=== PATIENT | female | born 1935 | race Caucasian/White ===

== ENCOUNTER 2016-09-30 22:17 | Inpatient (IN) | payer MEDICARE, MEDICAID ==
[~2016-09-30] VITALS: Ht 121.9 cm; Wt 105.2 kg
[~2016-09-30 22:17] MED LIST: /COSOOPD10 OU; /GLIP10TAB PO; /RANI15TA PO; ALDA25TA2 PO; ALLO100T PO; ALLO300T2 PO; ALPH0.1S OU; ATOR1TAB21 PO; BACITAB3 PO; BISA10SU PR; CALC1CAP31 PO; CINA30TA PO; CRAN500C2 PO; DORZ2OPD OU; GLIP10TA6 PO; HEPA50VL SC; HEPA50VL SQ; HUMA100I SC; IPRASOL4 NEB; LASI40TA PO; LEVO250T PO; LEVO25TA5 PO; MECL-68 PO; MULTTAB24 PO; NYST100024 TOP; SALI0.9I2 IV; SPIR25TA2 PO; TEFL600I IV; TRAD5TAB PO; TRAV0.00 OU; TRAV04OPD OU; TYLE325T5 PO; VITMTA PO; [UNRECOGNIZED DRUG - CODE] PO; [UNRECOGNIZED DRUG - OTHER] NEB; [UNRECOGNIZED DRUG - OTHER] OU
[2016-09-30] MEDS ORDERED: IPRATROPIUM 0.5MG/ALBUTEROL 2.5MG INH SOL UD 3ML (DUONEB)(J7620) As Ordered ONE (23:24)
[2016-09-30 23:38] LABS: ABG BASE EXCESS -2.5 (-2.0-2.0); ABG DEVICE NASAL CANN; ABG HCO3 22.9 MEQ/L (22.0-26.0); ABG PARTIAL PRESSURE CO2 41.9 mmHg (35.0-45.0); ABG PARTIAL PRESSURE O2 78.2 mmHg (75.0-100.0); ABG STANDARD HCO3 22.4 MEQ/L (22.0-26.0); ABG TOTAL CO2 24.2 MEQ/L (23.0-31.0); ABG pH (ARTERIAL) 7.356 UNITS (7.350-7.450)
[2016-09-30] MEDS ORDERED: NYST100024 TOP (23:48)
[2016-09-30] MEDS ORDERED: ASPI1TAB PO (23:48)
[2016-09-30] MEDS ORDERED: MECL-68 PO (23:48)
[2016-09-30] MEDS ORDERED: SYNT50TA PO (23:48)
[2016-09-30] MEDS ORDERED: GLIP10TA6 PO (23:48)
[2016-09-30] MEDS ORDERED: DEXI30CA PO (23:48)
[2016-09-30] MEDS ORDERED: PLAV75TA PO (23:51)
[2016-09-30] MEDS ORDERED: TRAV04OPD OU (23:51)
[2016-09-30] MEDS ORDERED: CINA30TA PO (23:51)
[2016-09-30] MEDS ORDERED: FURO40TA2 PO (23:51)
[2016-09-30] MEDS ORDERED: MIDO5TA PO (23:51)
[2016-09-30] MEDS ORDERED: HYDR25T PO (23:53)
[2016-09-30] MEDS ORDERED: CIPR250T3 PO (23:53)
[2016-09-30] MEDS ORDERED: CALC1CAP31 PO (23:53)
[2016-10-01] VITALS (40 sets, daily range): BP systolic 68–121; BP diastolic 43–68
[2016-10-01] MEDS ORDERED: IPRATROPIUM 0.5MG/ALBUTEROL 2.5MG INH SOL UD 3ML (DUONEB)(J7620) As Ordered ONE (00:14)
[2016-10-01] MEDS ORDERED: NOREPINEPHRINE 4 MG/4 ML AMP As Ordered ONE (00:39)
[2016-10-01 00:59] LABS: BASO # 0.2 K/mm3 (0.0-0.2); BASO % 1.7 % (0.0-1.0); EOS # 0.3 K/mm3 (0.0-0.50); EOS % 2.6 % (0.0-3.0); LARGE UNSTAINED CELL # 0.1 K/mm3 (0.0-0.4); LARGE UNSTAINED CELL % 1.2 % (0.0-4.0); LYMPH # 1.9 K/mm3 (1.5-4.5); LYMPH % 16.9 % (24.0-44.0); MEAN CORPUSCULAR HEMOGLOBIN 27.7 pg (27.0-33.0); MEAN CORPUSCULAR HGB CONC 30.5 g/dl (32.0-36.5); MEAN CORPUSCULAR VOLUME 90.7 fl (80.0-96.0); MONO # 0.5 K/mm3 (0.0-0.8); MONO % 4.6 % (0.0-5.0); NEUTROPHILS # 7.6 K/mm3 (1.8-7.7); NEUTROPHILS % 73.1 % (36.0-66.0); PLATELET COUNT, AUTOMATED 206 k/mm3 (150-450); RED CELL DISTRIBUTION WIDTH 16.4 % (11.5-14.5); WHITE BLOOD COUNT 10.4 K/mm3 (4.0-10.0)
[2016-10-01 01:22] LABS: CALCIUM LEVEL 8.3 MG/DL (8.8-10.2); CREATININE FOR GFR 2.56 MG/DL (0.55-1.02); GLOMERULAR FILTRATION RATE 19.2 (>32); POTASSIUM SERUM 5.1 MEQ/L (3.5-5.1)
[2016-10-01] MEDS ORDERED: ACETAMINOPHEN TAB 650MG DOSE (2X325MG) As Ordered ONE (03:24)
--- NOTE | 2016-10-01 03:30 | REPUSA ---
CLINICAL HISTORY: Cough. TECHNIQUE: Multiple axial CT images were obtained through chest without IV contrast material. MPR cor onal and sagittal sequences were obtained. COMMENTS: There is no evidence of pleural or parenchymal mass. There are small bilateral pleural effusions. The re is no evidence of hilar or mediastinal lymphadenopathy. The heart is moderately enlarged great ves sels are engorged. Interstitial pulmonary edema. Alveolar pulmonary edema. The visualized portions of the liver are of uniform attenuation without mass or defect. There is no i ntra or extrahepatic biliary ductal dilatation. The spleen is unremarkable. The visualized pancreas i s of normal contour and attenuation characteristics. There is no evidence of adrenal mass. The visual ized portions of the kidneys present no abnormalities. The bony structures are free of lytic or blastic lesions. Multilevel degenerative changes are seen in volving the thoracic spine. Scattered calcifications are seen involving the aorta and visualized roxann r branches compatible with atherosclerosis. Mild increase in dorsal kyphosis. Prior cholecystectomy. IMPRESSION: Congestive heart failure. Small pleural effusions. Interstitial pulmonary edema. Alveolar pulmonary edema. Thank you for your kind referral of this patient.
[2016-10-01] MEDS ORDERED: NOREPINEPHRINE BITARTRATE 8 MG in D5W 500 ML IV SCH (05:00)
[2016-10-01] MEDS ORDERED: GLUCAGON FOR INJ 1 MG VIAL (J1610) SC PRN (05:15)
[2016-10-01] MEDS ORDERED: GLUCOSE 4 GM CHEW TABLET PO PRN (05:15)
[2016-10-01] MEDS ORDERED: DEXTROSE 50% 50 ML SYRINGE IV PRN (05:15)
--- NOTE | 2016-10-01 06:56 | EDDOCDS ---
Nurse's Notes [facility] Name: Shyanne Adams Age: 81 yrs Sex: Female : 1935 Arrival Date: 09/30/2016 Time: 22:17 Bed 2 Private MD: Serjio Ivan MD Diagnosis: Acute combined systolic (congestive) and diastolic (congestive) heart failure;Hypoxemia;Hypotension Presentation: 09/30 22:21 Presenting complaint: EMS states: patient lives at home, daughter arrived and patient nn1 was barely conscious. Patient has hx of COPD, room air saturation 70%. Patient given nitro en route, nitro improved symptoms. Patient received 10mg of lasix en route, BP low. Transition of care: patient was not received from another setting of care. 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 Care prior to nn1 arrival: Medications administered prior to arrival: 1 nitro, 10mg lasix. 22:41 Suicide/Homicide risk assessment- the patient denies having any suicidal and/or nn1 homicidal ideations and does not present with any other emotional, behavioral or mental health complaints. 23:55 Adult Sepsis Screening: The patient does not have new or worsening altered mentation. nn1 Patient's respiratory rate is less than 22. Systolic blood pressure is greater than 100. Patient has a qSOFA score of 0- Negative Sepsis Screen. Triage Assessment: 22:44 General: Appears in no apparent distress, Behavior is fussy. Pain: Denies pain. The nn1 patient is triaged at the bedside. See Assessment in Nurses Notes section of ED record. Neurological: Level of Consciousness is awake, alert, obeys commands, Oriented to person, place, time, Moves all extremities. Cardiovascular: Capillary refill < 3 seconds. Cardiovascular: Edema is 4+ to left midcalf, left ankle, left foot, left toes, right midcalf, right ankle, right foot and right toes Chest pain is denied. Respiratory: Onset: The symptoms/episode began/occurred today, Airway is patent Respiratory effort is even, Respiratory pattern is regular, Breath sounds are coarse expiratory. GI: Abdomen is obese. Derm: Skin breakdown noted throughout body. Cellulitis noted in bilateral lower extremities, scabs throughout. Skin is dry, flaking. Rash noted on upper back. Injury Description: No known injury. Historical: - Allergies: NSAIDS (Stage IV kidney disease); ROSIGLITAZONE DERIVATIVES (Rash); - Home Meds: 1. meclizine 25 mg Oral cap daily 2. allopurinol 100 mg Oral tab 2 tabs once daily 3. aspirin 81 mg Oral tab 1 tab once daily 4. atorvastatin 20 mg oral tab 1 tab once daily 5. deyilant 30 mg daily 6. dorzolamide 2 % ophthalmic drop 7. glipizide 10 mg Oral tab 1 tab 2 times per day 8. Lasix 40 mg Oral tab 1 tab 2 times per day 9. levothyroxine 50 mcg Oral cap 1 cap once daily 10. midodrine 5 mg oral tab 11. Plavix 75 mg Oral tab 1 tab once daily 12. Sensipar 30 mg oral tab bid M and F 13. Travatan Z 0.004 % ophthalmic drop 1 drop nightly - PMHx: Anemia; CHF; Diabetes - NIDDM: controlled; Glaucoma; Gout; Heart Murmur; heart valve problem; Hypertension; Hypothyroidism; Stage IV kidney disease; Vertigo; - PSHx: Cholecystectomy; ; - Social history: Smoking status: Patient states was never smoker of tobacco. No barriers to communication noted, The patient speaks fluent Bahamian, Speaks appropriately for age. - Family history: No immediate family members are acutely ill. - : The pt / caregiver states he / she is on anticoagulants: Plavix. Home medication list is obtained from [facility] import data. - Exposure Risk Screening:: None identified. Screenin:48 Screening information is obtained from the patient. Fall risk: At risk due to gait nn1 disturbance. Assistance ADL's: Requires assistance with meal preparation, this assistance is provided by Home Health Aides, bathing, assistance is provided by Home Health Aides, dressing, assistance is provided by Home Health Aides, toileting, assistance is provided by Home Health Aides, ambulation, assistance is provided by Home Health Aides, housework, assistance is provided by Home Health Aides, medication administration, assistance is provided by Public Health nurses. Abuse/DV Screen: The patient / caregiver reports he/she is: not in a situation that causes fear, pain or injury. Nutritional screening: No deficits noted. Advance Directives: Currently, there is a health care proxy, Haydee Mckay, daughter . There is an active DNR order but there is no copy available at this time. home support is adequate. Assessment: 22:49 General: See triage assessment . Cardiovascular: Capillary refill < 3 seconds Heart nn1 tones S1 S2 present Rhythm is sinus tachycardia Chest pain is denied. 23:55 General: Patient is comfortable, reports headache at this time. Has family at bedside. nn1 . Respiratory: Airway is patent Respiratory effort is even, Respiratory pattern is regular. 10/01 00:24 General: Patient requested lights to be shut off so she can sleep. patient received nn1 breathing treatments. . Respiratory: Breath sounds are coarse expiratory. 00:49 General: Patients blood pressure dropped, patient reporting dizziness and that she does nn1 not feel right. Patient medicated per order, patient placed in Trendelenburg. Will continue to monitor patient . Neurological: Level of Consciousness is awake, alert. Respiratory: Airway is patent Respiratory effort is even, Respiratory pattern is regular. Derm: Skin is pink, warm & dry. 02:02 General: Appears in no apparent distress, to be sleeping. Behavior is quiet, Patient nn1 has calmed down, continuing to monitor blood pressure at this time. . Respiratory: Airway is patent Respiratory effort is even, Respiratory pattern is regular, symmetrical. Derm: Skin is pink, warm & dry. 03:00 General: Appears in no apparent distress, to be sleeping. Behavior is quiet. nn1 04:05 Reassessment: Patient appears in no apparent distress at this time. Respiratory: Airway nn1 is patent Respiratory effort is even, unlabored, Respiratory pattern is regular, symmetrical. 04:49 General: Appears in no apparent distress, comfortable, to be sleeping. Behavior is nn1 quiet. Respiratory: Airway is patent Respiratory effort is even, unlabored, Respiratory pattern is regular, symmetrical. Derm: Skin is pink, warm & dry. 05:30 General: Dr. Awad assessed patient, no central line placement at this time. Patient nn1 had bowel movement, patient changed, clean linens placed on bed. Patient now resting. Spoke with ED provider, levophed remaining at 6mcg/min at this time. . 05:47 General: Attempt to call report made, ICU refusing to take patient due to lack of nn1 central line, charge nurse notified. . 06:50 General: Appears in no apparent distress, to be sleeping. Behavior is quiet. nn1 Respiratory: Airway is patent Respiratory effort is even, unlabored, Respiratory pattern is regular, symmetrical. Derm: Skin is pink, warm & dry. Vital Signs: 09/30 22:42 BP 132 / 75; Pulse 99; Resp 20; Temp 97.5(TE); Pulse Ox 97% on 6 lpm NC; Weight 108.86 rn1 kg (R); Height 4 ft. 10 in. (147.32 cm); Pain 0/10; 22:50 BP 109 / 58 (auto/); nn1 22:50 Pulse 111 MON; Pulse Ox 100% ; nn1 23:00 BP 126 / 53 (auto/); nn1 23:00 Pulse 113 MON; Pulse Ox 100% ; nn1 23:15 BP 118 / 58 (auto/); nn1 23:15 Pulse 114 MON; Pulse Ox 99% ; nn1 23:30 BP 127 / 56 (auto/); nn1 23:30 Pulse 112 MON; Pulse Ox 99% ; nn1 23:45 BP 108 / 55 (auto/); nn1 23:45 Pulse 111 MON; nn1 10/01 00:00 BP 115 / 73 (auto/); nn1 00:00 Pulse 110 MON; Pulse Ox 99% ; nn1 00:15 BP 102 / 57 (auto/); nn1 00:15 Pulse 114 MON; Pulse Ox 95% ; nn1 00:30 BP 53 / 32 (auto/); nn1 00:30 Pulse 120 MON; Pulse Ox 95% ; nn1 00:32 BP 62 / 34 (auto/); nn1 00:32 Pulse 110 MON; Pulse Ox 97% ; nn1 00:43 BP 51 / 31 (auto/); nn1 00:43 Pulse 98 MON; Pulse Ox 96% ; nn1 00:45 BP 55 / 37 (auto/); nn1 00:45 Pulse 101 MON; Pulse Ox 97% ; nn1 00:51 Resp 18; Pulse Ox 2 lpm NC; nn1 00:51 Pulse 114 MON; Pulse Ox 95% ; nn1 00:51 Resp 18; nn1 00:52 BP 73 / 48 (auto/); nn1 00:58 Pulse 123 MON; Pulse Ox 96% ; nn1 00:59 Pulse 123 MON; Pulse Ox 95% ; nn1 00:59 BP 84 / 54 (auto/); nn1 01:00 BP 85 / 55 (auto/); nn1 01:00 BP 84 / 54; nn1 01:10 BP 99 / 54 (auto/); nn1 01:10 Pulse 127 MON; Pulse Ox 96% ; nn1 01:15 BP 91 / 54 (auto/); nn1 01:15 Pulse 128 MON; Pulse Ox 94% ; nn1 01:21 BP 87 / 50 (auto/); nn1 01:21 Pulse 127 MON; Pulse Ox 94% ; nn1 01:22 BP 87 / 50; nn1 01:30 BP 90 / 50 (auto/); nn1 01:30 Pulse 130 MON; Pulse Ox 95% ; nn1 01:45 BP 88 / 50 (auto/); nn1 01:45 Pulse 131 MON; Pulse Ox 96% ; nn1 02:00 BP 95 / 53 (auto/); nn1 02:00 Pulse 131 MON; Pulse Ox 96% ; nn1 02:15 BP 97 / 56 (auto/); nn1 02:29 Pulse 135 MON; Pulse Ox 96% ; nn1 02:30 BP 92 / 56 (auto/); nn1 02:30 Pulse 135 MON; Pulse Ox 96% ; nn1 02:45 BP 103 / 57 (auto/); nn1 02:45 Pulse 128 MON; Pulse Ox 97% ; nn1 02:58 Resp 18; Temp 97.3(TE); nn1 03:00 BP 83 / 53 (auto/); nn1 03:00 Pulse 130 MON; Pulse Ox 97% ; nn1 03:15 BP 95 / 55 (auto/); nn1 03:15 Pulse 131 MON; Pulse Ox 97% ; nn1 03:25 BP 103 / 56 (auto/); nn1 03:25 Pulse 123 MON; Pulse Ox 98% ; nn1 03:27 BP 103 / 56; Pulse 126; nn1 03:30 BP 103 / 59 (auto/); nn1 03:30 Pulse 124 MON; Pulse Ox 99% ; nn1 03:45 BP 84 / 52 (auto/); nn1 03:45 Pulse 127 MON; Pulse Ox 99% ; nn1 04:00 BP 89 / 50 (auto/); nn1 04:00 Pulse 127 MON; Pulse Ox 98% ; nn1 04:15 BP 100 / 58 (auto/); nn1 04:16 Pulse 124 MON; Pulse Ox 98% ; nn1 04:30 BP 102 / 56 (auto/); nn1 04:30 Pulse 120 MON; Pulse Ox 99% ; nn1 04:45 BP 94 / 51 (auto/); nn1 04:45 Pulse 115 MON; Pulse Ox 98% ; nn1 04:57 Pulse Ox 2 lpm NC; nn1 05:00 BP 98 / 53 (auto/); nn1 05:00 Pulse 116 MON; Pulse Ox 98% ; nn1 05:15 BP 104 / 56 (auto/); nn1 05:15 Pulse 114 MON; Pulse Ox 100% ; nn1 05:38 BP 92 / 53 (auto/); nn1 05:38 Pulse 124 MON; Pulse Ox 94% ; nn1 05:45 BP 120 / 60 (auto/); nn1 05:45 Pulse 118 MON; Pulse Ox 97% ; nn1 06:00 BP 106 / 55 (auto/); nn1 06:00 Pulse 109 MON; Pulse Ox 97% ; nn1 06:15 BP 98 / 57 (auto/); nn1 06:15 Pulse 108 MON; Pulse Ox 99% ; nn1 06:30 BP 95 / 52 (auto/); nn1 06:30 Pulse 107 MON; Pulse Ox 99% ; nn1 06:36 Resp 20; nn1 06:49 BP 107 / 57 RA Supine (auto/reg); Pulse 115 MON; Temp 97.1(TE); Pulse Ox 99% on 2 lpm cln NC; Pain 0/10; 09/30 22:42 Body Mass Index 50.16 (108.86 kg, 147.32 cm) rn1 Vitals: 06:49 Log In Time N/A - ambulance arrival. nn1 ED Course: 09/30 22:18 Patient visited by Asher Boles Alcohol And Drug Counselor. ml3 22:18 Serjio Ivan is Private Physician. ml3 22:18 Patient moved to Waiting ml3 22:19 Patient moved to 2 ml3 22:22 Triage Initiated nn1 22:29 Sd Clifford DO is Attending Physician. mm11 22:29 Patient visited by Sd Clifford DO. mm11 23:01 Patient visited by Sd Clifford DO. mm11 23:01 [facility] Payment Agreement was scanned into [employer] and attached to record. kf3 23:26 Patient visited by Robyn Weiner PCA. cln 23:26 EKG done. (by ED staff). Reviewed by Sd Clifford DO. cln 23:35 -Arterial Blood Gas Sent. jh6 23:56 Patient visited by Rod Waterman RN. nn1 10/01 00:23 Maintain field IV. Gauge & site: 20G RAC . IV is patent. O2 via nasal cannula \T\ 2L/min. nn1 00:37 Patient visited by Sd Clifford DO. mm11 00:50 Inserted saline lock: 18 gauge in left antecubital area and blood collected. The nn1 patient tolerated the procedure well. 01:09 Patient visited by Sd Clifford DO. mm11 01:19 BLOOD CULTURES Sent. nn1 01:41 Patient visited by Sd Clifford DO. mm11 02:20 Patient visited by Sd Clifford DO. mm11 02:53 EKG done. (by ED staff). Reviewed by Sd Clifford DO. cln 02:58 Patient visited by Rod Waterman RN. nn1 03:37 CT Chest Without Contrast Returned. EDMS 03:49 Patient visited by Robyn Weiner PCA. cln 04:49 Patient visited by Rod Waterman RN. nn1 05:28 Marquita Gaston is Hospitalizing Provider. mm11 06:41 Patient visited by Rod Waterman RN. nn1 06:49 The patient / caregiver is instructed regarding the plan of care and ED course. nn1 06:49 No procedures done that require assistance. nn1 06:50 Patient visited by Bety White. dem1 06:50 Patient visited by Robyn Weiner PCA. cln 06:50 Assisted with bedpan. dem1 Administered Medications: 09/30 23:35 Drug: Albuterol-Ipratropium 1 neb [ipratropium-albuterol 0.5 mg-3 mg(2.5 mg base)/3 mL 6 nebulization soln (1 neb)] Route: Nebulizer; 23:55 Drug: Albuterol-Ipratropium 1 neb [ipratropium-albuterol 0.5 mg-3 mg(2.5 mg base)/3 mL jh6 nebulization soln (1 neb)] Route: Nebulizer; 10/01 00:16 Drug: Albuterol-Ipratropium 1 neb [ipratropium-albuterol 0.5 mg-3 mg(2.5 mg base)/3 mL jh6 nebulization soln (1 neb)] Route: Nebulizer; 00:48 Drug: NS 0.9% 500 ml [sodium chloride 0.9 % intravenous solution] Route: IV; Rate: nn1 bolus; Site: right antecubital; 00:48 Drug: Norepinephrine (8mg/500mL D5W, 2mcg/min) 4 mcg/min [norepinephrine bitartrate 1 nn1 mg/mL intravenous solution] Route: IVPB; Rate: calculated rate; Site: left antecubital; 00:54 Follow up: Rate change 6 mcg/min nn1 01:00 Follow up: BP 84 / 54 nn1 01:00 Follow up: Rate change 8 mcg/min nn1 01:22 Follow up: BP 87 / 50 nn1 01:23 Follow up: Rate change 10 mcg/min nn1 02:58 Follow up: Rate change 8 mcg/min nn1 03:27 Follow up: BP 103 / 56; Pulse 126 bpm nn1 03:27 Follow up: Rate change 6 mcg/min nn1 03:27 Drug: Acetaminophen 650 mg [acetaminophen 325 mg tablet (2 tabs)] Route: PO; nn1 RT: 09/30 22:22 O2 via nasal cannula \T\ 6L/min. Respiratory: Airway is patent Respiratory effort is jh6 even, labored, Respiratory pattern is tachypnea Breath sounds are coarse in right upper lobe, left upper lobe, right middle lobe, left lower lobe and right lower lobe. 23:35 ABG's drawn from left radial artery pressure held for 5 minutes no bleeding noted jh6 pressure bandage applied specimen sent pt. tolerated well. 23:39 Initial Med Neb Given as ordered Patient was instructed and evaluated on procedure jh6 Patient tolerated procedure well without adverse effect. Respiratory: Airway is patent Respiratory effort is even, unlabored, Respiratory pattern is regular symmetrical, Breath sounds are coarse in right upper lobe, left upper lobe, right middle lobe, left lower lobe and right lower lobe. 23:45 Respiratory: Breath sounds are coarse in right upper lobe, left upper lobe, right jh6 middle lobe, left lower lobe and right lower lobe. 23:57 Subsequent Med Neb Given as ordered Patient was reinforced on procedure Patient chantel tolerated procedure well without adverse effect. Respiratory: Airway is patent Respiratory effort is even, unlabored, Respiratory pattern is regular symmetrical, Breath sounds with crackles in right upper lobe, left upper lobe, right middle lobe, left lower lobe and right lower lobe. 10/01 00:17 Subsequent Med Neb Given as ordered Patient was reinforced on procedure Patient chantel tolerated procedure well without adverse effect. Respiratory: Airway is patent Respiratory effort is even, unlabored, Respiratory pattern is regular symmetrical, Breath sounds are coarse in right upper lobe, left upper lobe, right middle lobe, left lower lobe and right lower lobe Breath sounds with crackles in right upper lobe, left upper lobe, right middle lobe, left lower lobe and right lower lobe. Order Results: Lab Order: -Arterial Blood Gas; SPEC'M 09/30/16 23:28 Test: ABG pH (ARTERIAL); Value: 7.356; Range: 7.350-7.450; Units: UNITS; Status: F Test: ABG PARTIAL PRESSURE CO2; Value: 41.9; Range: 35.0-45.0; Units: mmHg; Status: F Test: ABG PARTIAL PRESSURE O2; Value: 78.2; Range: 75.0-100.0; Units: mmHg; Status: F Test: ABG TOTAL CO2; Value: 24.2; Range: 23.0-31.0; Units: MEQ/L; Status: F Test: ABG HCO3; Value: 22.9; Range: 22.0-26.0; Units: MEQ/L; Status: F Test: ABG BASE EXCESS; Value: -2.5; Range: -2.0-2.0; Abnormal: Below low normal; Status: F Test: ABG STANDARD HCO3; Value: 22.4; Range: 22.0-26.0; Units: MEQ/L; Status: F Test: ABG O2 SATURATION; Value: 95.3; Range: 95.0-99.0; Units: %; Status: F Test: ABG DEVICE; Value: NASAL JORGE L; Status: F Lab Order: B-Type Natiuretic Peptide; SPEC'M 10/01/16 00:38 Test: BRAIN NATRIURETIC PEPTIDE; Value: 279; Range: <100; Abnormal: Above high normal; Units: PG/ML; Status: F Lab Order: Basic Metabolic Profile; SPEC' 10/01/16 00:38 Test: GLUCOSE, FASTING; Value: 219; Range: 83-110; Abnormal: Above high normal; Units: MG/DL; Status: F Test: BLOOD UREA NITROGEN; Value: 66; Range: 7-18; Abnormal: Above high normal; Units: MG/DL; Status: F Test: CREATININE FOR GFR; Value: 2.56; Range: 0.55-1.02; Abnormal: Above high normal; Units: MG/DL; Status: F Test: GLOMERULAR FILTRATION RATE; Value: 19.2; Range: >32; Abnormal: Below low normal; Status: F Test: SODIUM LEVEL; Value: 142; Range: 136-145; Units: MEQ/L; Status: F Test: POTASSIUM SERUM; Value: 5.1; Range: 3.5-5.1; Units: MEQ/L; Status: F Test: CHLORIDE LEVEL; Value: 108; Range: 98-107; Abnormal: Above high normal; Units: MEQ/L; Status: F Test: CARBON DIOXIDE LEVEL; Value: 25; Range: 21-32; Units: MEQ/L; Status: F Test: ANION GAP; Value: 9; Range: 8-16; Units: MEQ/L; Status: F Test: CALCIUM LEVEL; Value: 8.3; Range: 8.8-10.2; Abnormal: Below low normal; Units: MG/DL; Status: F Test Note: ; Units are mL/min/1.73 m2 Chronic Kidney Disease Staging per NKF: Stage I & II GFR >=60 Normal to Mildly Decreased Stage III GFR 30-59 Moderately Decreased Stage IV GFR 15-29 Severely Decreased Stage V GFR <15 Very Little GFR Left ESRD GFR <15 on CAN TECHNICIAN Lab Order: CBC with Diff; SPEC'M 10/01/16 00:38 Test: WHITE BLOOD COUNT; Value: 10.4; Range: 4.0-10.0; Abnormal: Above high normal; Units: K/mm3; Status: F Test: RED BLOOD COUNT; Value: 3.49; Range: 4.00-5.40; Abnormal: Below low normal; Units: M/mm3; Status: F Test: HEMOGLOBIN; Value: 9.7; Range: 12.0-16.0; Abnormal: Below low normal; Units: g/dl; Status: F Test: HEMATOCRIT; Value: 31.7; Range: 36.0-47.0; Abnormal: Below low normal; Units: %; Status: F Test: MEAN CORPUSCULAR VOLUME; Value: 90.7; Range: 80.0-96.0; Units: fl; Status: F Test: MEAN CORPUSCULAR HEMOGLOBIN; Value: 27.7; Range: 27.0-33.0; Units: pg; Status: F Test: MEAN CORPUSCULAR HGB CONC; Value: 30.5; Range: 32.0-36.5; Abnormal: Below low normal; Units: g/dl; Status: F Test: RED CELL DISTRIBUTION WIDTH; Value: 16.4; Range: 11.5-14.5; Abnormal: Above high normal; Units: %; Status: F Test: PLATELET COUNT, AUTOMATED; Value: 206; Range: 150-450; Units: k/mm3; Status: F Test: NEUTROPHILS %; Value: 73.1; Range: 36.0-66.0; Abnormal: Above high normal; Units: %; Status: F Test: LYMPH %; Value: 16.9; Range: 24.0-44.0; Abnormal: Below low normal; Units: %; Status: F Test: MONO %; Value: 4.6; Range: 0.0-5.0; Units: %; Status: F Test: EOS %; Value: 2.6; Range: 0.0-3.0; Units: %; Status: F Test: BASO %; Value: 1.7; Range: 0.0-1.0; Abnormal: Above high normal; Units: %; Status: F Test: LARGE UNSTAINED CELL %; Value: 1.2; Range: 0.0-4.0; Units: %; Status: F Test: NEUTROPHILS #; Value: 7.6; Range: 1.8-7.7; Units: K/mm3; Status: F Test: LYMPH #; Value: 1.9; Range: 1.5-4.5; Units: K/mm3; Status: F Test: MONO #; Value: 0.5; Range: 0.0-0.8; Units: K/mm3; Status: F Test: EOS #; Value: 0.3; Range: 0.0-0.50; Units: K/mm3; Status: F Test: BASO #; Value: 0.2; Range: 0.0-0.2; Units: K/mm3; Status: F Test: LARGE UNSTAINED CELL #; Value: 0.1; Range: 0.0-0.4; Units: K/mm3; Status: F Lab Order: Cardiac Injury Profile; [facility] 10/01/16 00:38 Test: CPK CREATINE PHOSPHOKINASE; Value: 54; Range: 26-192; Units: U/L; Status: F Test: CK-MB VALUE MASS; Value: 3.1; Range: 0.0-3.6; Units: NG/ML; Status: F Test: MB/CK RELATIVE INDEX; Value: 5.74; Range: < OR =4; Abnormal: Above high normal; Status: F Test Note: ; DIAGNOSIS CRITERIA MMB ng/ml Relative Index (RI) NON-AMI < or = 5 N/A ALFARO ZONE > 5 < or = 4 AMI > 5 > 4 Lab Order: Troponin; [facility] 10/01/16 00:38 Test: TROPONIN I; Value: 0.28; Range: < 0.10; Abnormal: Above high normal; Units: NG/ML; Status: F Test Note: ; Troponin I Reference Interval for Stylect LOCI: 99th Percentile= 0.00-0.045 ng/ml Risk Stratification: <= 0.10 ng/ml Decreased Risk for Adverse Clinical Events. 0.10-1.50 ng/ml Increased Risk for Adverse Clinical Events. Evaluation of additional criterion and/or repeat testing in 2-6 hours is suggested to rule out myocardial damage. >= 1.50 ng/ml Indicative of Myocardial Injury. Lab Order: Lactic Acid (Alfaro tube on ice); [facility] 10/01/16 00:38 Test: LACTIC ACID LEVEL, LACTATE; Value: 1.9; Range: 0.4-2.0; Units: MMOL/L; Status: F Lab Order: CARDIAC MARKER PANEL; [facility] 10/01/16 02:56 Test: CPK CREATINE PHOSPHOKINASE; Value: 90; Range: 26-192; Units: U/L; Status: F Test: CK-MB VALUE MASS; Value: 5.3; Range: 0.0-3.6; Abnormal: Above high normal; Units: NG/ML; Status: F Test: MB/CK RELATIVE INDEX; Value: 5.88; Range: < OR =4; Abnormal: Above high normal; Status: F Test: TROPONIN I; Value: 0.41; Range: < 0.10; Abnormal: High; Units: NG/ML; Status: F Test Note: ; DIAGNOSIS CRITERIA MMB ng/ml Relative Index (RI) NON-AMI < or = 5 N/A ALFARO ZONE > 5 < or = 4 AMI > 5 > 4 Radiology Order: CT Chest Without Contrast Test: CT Chest Without Contrast REASON FOR EXAMINATION: Cough; ; CLINICAL HISTORY: Cough.; TECHNIQUE: Multiple axial CT images were obtained through chest without IV contrast material. MPR cor; onal and sagittal sequences were obtained.; COMMENTS:; There is no evidence of pleural or parenchymal mass. There are small bilateral pleural effusions. The; re is no evidence of hilar or mediastinal lymphadenopathy. The heart is moderately enlarged great ves; sels are engorged. Interstitial pulmonary edema. Alveolar pulmonary edema.; The visualized portions of the liver are of uniform attenuation without mass or defect. There is no i; ntra or extrahepatic biliary ductal dilatation. The spleen is unremarkable. The visualized pancreas i; s of normal contour and attenuation characteristics. There is no evidence of adrenal mass. The visual; ized portions of the kidneys present no abnormalities.; The bony structures are free of lytic or blastic lesions. Multilevel degenerative changes are seen in; volving the thoracic spine. Scattered calcifications are seen involving the aorta and visualized roxann; r branches compatible with atherosclerosis. Mild increase in dorsal kyphosis.; Prior cholecystectomy.; IMPRESSION:; Congestive heart failure.; Small pleural effusions.; Interstitial pulmonary edema.; Alveolar pulmonary edema.; Thank you for your kind referral of this patient.; ; ; Outcome: 05:28 Decision to Hospitalize by Provider. mm11 06:48 Discharge Assessment: Patient awake, alert and oriented x 3. No cognitive and/or nn1 functional deficits noted. Patient verbalized understanding of disposition instructions. patient administered narcotics - no. The following High Risk Discharge criteria are identified: None. Admitted to ICU accompanied by nurse, accompanied by tech, via stretcher, with oxygen, on monitor, with chart. critical. CT Study completed. Admission hand-off: Report called to BETTY Aguillon. Property :Personal belongings accompany Pt. 06:55 Patient left the ED. nn1 Signatures: Dispatcher [employer] EDMS Asher Boles, Alcohol And Drug Counselor Unit ml3 Sd Clifford, DO DO mm11 Donnie Anne, Reg Reg kf3 Leonidas Sanchez jh6 Bety White1 Martínez Stanford rn1 Rod Waterman RN RN nn1 Robyn Weiner, [employer] STENOGRAPHER cln Corrections: (The following items were deleted from the chart) 05:49 05:30 General: Dr. Awad assessed patient, no central line placement at this time. nn1 Patient had bowel movement, patient changed, clean linens placed on bed. Patient now resting. . nn1 MTDD
--- NOTE | 2016-10-01 06:56 | EDDOCDS ---
Physician Documentation [facility] Name: Shyanne Adams Age: 81 yrs Sex: Female : 1935 Arrival Date: 09/30/2016 Time: 22:17 Bed 2 Private MD: Serjio Ivan MD Disposition: 10/01/16 05:28 Hospitalization ordered by Marquita Gaston for Inpatient Admission. Preliminary diagnosis are Acute combined systolic (congestive) and diastolic (congestive) heart failure, Hypoxemia, Hypotension. - Bed requested for ICU. - Status is Inpatient Admission. nn1 - Condition is Stable. - Problem is an acute exacerbation. - Symptoms have improved. Historical: - Allergies: NSAIDS (Stage IV kidney disease); ROSIGLITAZONE DERIVATIVES (Rash); - Home Meds: 1. meclizine 25 mg Oral cap daily 2. allopurinol 100 mg Oral tab 2 tabs once daily 3. aspirin 81 mg Oral tab 1 tab once daily 4. atorvastatin 20 mg oral tab 1 tab once daily 5. deyilant 30 mg daily 6. dorzolamide 2 % ophthalmic drop 7. glipizide 10 mg Oral tab 1 tab 2 times per day 8. Lasix 40 mg Oral tab 1 tab 2 times per day 9. levothyroxine 50 mcg Oral cap 1 cap once daily 10. midodrine 5 mg oral tab 11. Plavix 75 mg Oral tab 1 tab once daily 12. Sensipar 30 mg oral tab bid M and F 13. Travatan Z 0.004 % ophthalmic drop 1 drop nightly - PMHx: Anemia; CHF; Diabetes - NIDDM: controlled; Glaucoma; Gout; Heart Murmur; heart valve problem; Hypertension; Hypothyroidism; Stage IV kidney disease; Vertigo; - PSHx: Cholecystectomy; ; - Social history: Smoking status: Patient states was never smoker of tobacco. No barriers to communication noted, The patient speaks fluent Georgian, Speaks appropriately for age. - Family history: No immediate family members are acutely ill. - : The pt / caregiver states he / she is on anticoagulants: Plavix. Home medication list is obtained from [email or web address] import data. - Exposure Risk Screening:: None identified. Vital Signs: 09/30 22:42 BP 132 / 75; Pulse 99; Resp 20; Temp 97.5(TE); Pulse Ox 97% on 6 lpm NC; Weight 108.86 rn1 kg / 240 lbs (R); Height 4 ft. 10 in. (147.32 cm); Pain 0/10; 22:50 BP 109 / 58 (auto/); nn1 22:50 Pulse 111 MON; Pulse Ox 100% ; nn1 23:00 BP 126 / 53 (auto/); nn1 23:00 Pulse 113 MON; Pulse Ox 100% ; nn1 23:15 BP 118 / 58 (auto/); nn1 23:15 Pulse 114 MON; Pulse Ox 99% ; nn1 23:30 BP 127 / 56 (auto/); nn1 23:30 Pulse 112 MON; Pulse Ox 99% ; nn1 23:45 BP 108 / 55 (auto/); nn1 23:45 Pulse 111 MON; nn1 10/01 00:00 BP 115 / 73 (auto/); nn1 00:00 Pulse 110 MON; Pulse Ox 99% ; nn1 00:15 BP 102 / 57 (auto/); nn1 00:15 Pulse 114 MON; Pulse Ox 95% ; nn1 00:30 BP 53 / 32 (auto/); nn1 00:30 Pulse 120 MON; Pulse Ox 95% ; nn1 00:32 BP 62 / 34 (auto/); nn1 00:32 Pulse 110 MON; Pulse Ox 97% ; nn1 00:43 BP 51 / 31 (auto/); nn1 00:43 Pulse 98 MON; Pulse Ox 96% ; nn1 00:45 BP 55 / 37 (auto/); nn1 00:45 Pulse 101 MON; Pulse Ox 97% ; nn1 00:51 Resp 18; Pulse Ox 2 lpm NC; nn1 00:51 Pulse 114 MON; Pulse Ox 95% ; nn1 00:51 Resp 18; nn1 00:52 BP 73 / 48 (auto/); nn1 00:58 Pulse 123 MON; Pulse Ox 96% ; nn1 00:59 Pulse 123 MON; Pulse Ox 95% ; nn1 00:59 BP 84 / 54 (auto/); nn1 01:00 BP 85 / 55 (auto/); nn1 01:00 BP 84 / 54; nn1 01:10 BP 99 / 54 (auto/); nn1 01:10 Pulse 127 MON; Pulse Ox 96% ; nn1 01:15 BP 91 / 54 (auto/); nn1 01:15 Pulse 128 MON; Pulse Ox 94% ; nn1 01:21 BP 87 / 50 (auto/); nn1 01:21 Pulse 127 MON; Pulse Ox 94% ; nn1 01:22 BP 87 / 50; nn1 01:30 BP 90 / 50 (auto/); nn1 01:30 Pulse 130 MON; Pulse Ox 95% ; nn1 01:45 BP 88 / 50 (auto/); nn1 01:45 Pulse 131 MON; Pulse Ox 96% ; nn1 02:00 BP 95 / 53 (auto/); nn1 02:00 Pulse 131 MON; Pulse Ox 96% ; nn1 02:15 BP 97 / 56 (auto/); nn1 02:29 Pulse 135 MON; Pulse Ox 96% ; nn1 02:30 BP 92 / 56 (auto/); nn1 02:30 Pulse 135 MON; Pulse Ox 96% ; nn1 02:45 BP 103 / 57 (auto/); nn1 02:45 Pulse 128 MON; Pulse Ox 97% ; nn1 02:58 Resp 18; Temp 97.3(TE); nn1 03:00 BP 83 / 53 (auto/); nn1 03:00 Pulse 130 MON; Pulse Ox 97% ; nn1 03:15 BP 95 / 55 (auto/); nn1 03:15 Pulse 131 MON; Pulse Ox 97% ; nn1 03:25 BP 103 / 56 (auto/); nn1 03:25 Pulse 123 MON; Pulse Ox 98% ; nn1 03:27 BP 103 / 56; Pulse 126; nn1 03:30 BP 103 / 59 (auto/); nn1 03:30 Pulse 124 MON; Pulse Ox 99% ; nn1 03:45 BP 84 / 52 (auto/); nn1 03:45 Pulse 127 MON; Pulse Ox 99% ; nn1 04:00 BP 89 / 50 (auto/); nn1 04:00 Pulse 127 MON; Pulse Ox 98% ; nn1 04:15 BP 100 / 58 (auto/); nn1 04:16 Pulse 124 MON; Pulse Ox 98% ; nn1 04:30 BP 102 / 56 (auto/); nn1 04:30 Pulse 120 MON; Pulse Ox 99% ; nn1 04:45 BP 94 / 51 (auto/); nn1 04:45 Pulse 115 MON; Pulse Ox 98% ; nn1 04:57 Pulse Ox 2 lpm NC; nn1 05:00 BP 98 / 53 (auto/); nn1 05:00 Pulse 116 MON; Pulse Ox 98% ; nn1 05:15 BP 104 / 56 (auto/); nn1 05:15 Pulse 114 MON; Pulse Ox 100% ; nn1 05:38 BP 92 / 53 (auto/); nn1 05:38 Pulse 124 MON; Pulse Ox 94% ; nn1 05:45 BP 120 / 60 (auto/); nn1 05:45 Pulse 118 MON; Pulse Ox 97% ; nn1 06:00 BP 106 / 55 (auto/); nn1 06:00 Pulse 109 MON; Pulse Ox 97% ; nn1 06:15 BP 98 / 57 (auto/); nn1 06:15 Pulse 108 MON; Pulse Ox 99% ; nn1 06:30 BP 95 / 52 (auto/); nn1 06:30 Pulse 107 MON; Pulse Ox 99% ; nn1 06:36 Resp 20; nn1 06:49 BP 107 / 57 RA Supine (auto/reg); Pulse 115 MON; Temp 97.1(TE); Pulse Ox 99% on 2 lpm cln NC; Pain 0/10; 09/30 22:42 Body Mass Index 50.16 (108.86 kg, 147.32 cm) rn1 MDM: 09/30 23:01 [facility] Payment Agreement was scanned into [employer] and attached to record. kf3 23:02 -Blood Culture (Adults Only), peripheral from different site, or from device/port/PICC mm11 etc. if present ordered. 23:02 Call Respiratory ordered. mm11 23:02 Captain/Check Airman/Pulse Ox/q 15 min VS ordered. mm11 23:02 IV Saline Lock ordered. mm11 23:02 Oxygen at 4L/Min NC or Home dosage ordered. mm11 23:02 Rhythm Strip to chart ordered. mm11 23:02 Albuterol-Ipratropium 1 neb Nebulizer every 20 minutes x3 ordered. mm11 23:04 ECG WITH READING ER PHYS+CARDIAG ordered. EDMS 23:04 -Arterial Blood Gas Ordered. EDMS 23:04 B-Type Natiuretic Peptide Ordered. EDMS 23:04 Basic Metabolic Profile Ordered. EDMS 23:04 CBC with Diff Ordered. EDMS 23:04 Cardiac Injury Profile Ordered. EDMS 23:04 Troponin Ordered. EDMS 23:04 -Blood Culture Ordered. EDMS 23:04 Chest, 1 View Ordered. EDMS 23:04 BED REQUEST+ADM ordered. EDMS 23:14 Call Respiratory complete. ml3 23:15 -Blood Culture (Adults Only), peripheral from different site, or from device/port/PICC ml3 etc. if present complete. 23:17 BLOOD CULTURES Ordered. EDMS 23:26 Financial registration complete. kf3 10/01 00:00 -Arterial Blood Gas Reviewed. mm11 00:32 NS 0.9% 500 ml IV at bolus once ordered. mm11 00:35 Lactic Acid (Alfaro tube on ice) Ordered. EDMS 00:37 Norepinephrine (8mg/500mL D5W, 2mcg/min) 4 mcg/min IVPB at calculated rate continuous; mm11 Titrate 2mcg/min q5min to maintain SBP > 90mmHg. Max rate 20 mcg/min ordered. 00:46 ECG WITH READING ER PHYS+CARDIAG ordered. EDMS 01:18 B-Type Natiuretic Peptide Reviewed. mm11 01:18 CBC with Diff Reviewed. mm11 01:41 Basic Metabolic Profile Reviewed. mm11 01:41 Cardiac Injury Profile Reviewed. mm11 01:41 Troponin Reviewed. mm11 01:41 Lactic Acid (Alfaro tube on ice) Reviewed. mm11 01:45 CT Chest Without Contrast Ordered. EDMS 02:01 Repeat EKG (put time details section) ordered. mm11 02:01 Redraw CIP &Troponin (put time in details section) ordered. mm11 02:03 Redraw CIP &Troponin (put time in details section) complete. ml3 02:03 Repeat EKG (put time details section) complete. ml3 02:04 ECG WITH READING ER PHYS ordered. EDMS 02:04 CARDIAC MARKER PANEL Ordered. EDMS 03:19 Acetaminophen Tablet 650 mg PO once ordered. mm11 03:37 CARDIAC MARKER PANEL Reviewed. mm11 03:37 CT Chest Without Contrast Reviewed. mm11 05:03 Admission / Observation Status ordered. EDMS 05:03 TROPONIN Ordered. EDMS 05:03 TROPONIN Ordered. EDMS 05:04 TROPONIN Ordered. EDMS 05:04 CARDIAC INJURY PROFILE Ordered. EDMS 05:04 CARDIAC INJURY PROFILE Ordered. EDMS 05:04 CARDIAC INJURY PROFILE Ordered. EDMS 06:22 MRSA SCREEN Ordered. EDMS Administered Medications: 09/30 23:35 Drug: Albuterol-Ipratropium 1 neb [ipratropium-albuterol 0.5 mg-3 mg(2.5 mg base)/3 mL jh6 nebulization soln (1 neb)] Route: Nebulizer; 23:55 Drug: Albuterol-Ipratropium 1 neb [ipratropium-albuterol 0.5 mg-3 mg(2.5 mg base)/3 mL jh6 nebulization soln (1 neb)] Route: Nebulizer; 10/01 00:16 Drug: Albuterol-Ipratropium 1 neb [ipratropium-albuterol 0.5 mg-3 mg(2.5 mg base)/3 mL jh6 nebulization soln (1 neb)] Route: Nebulizer; 00:48 Drug: NS 0.9% 500 ml [sodium chloride 0.9 % intravenous solution] Route: IV; Rate: nn1 bolus; Site: right antecubital; 00:48 Drug: Norepinephrine (8mg/500mL D5W, 2mcg/min) 4 mcg/min [norepinephrine bitartrate 1 nn1 mg/mL intravenous solution] Route: IVPB; Rate: calculated rate; Site: left antecubital; 00:54 Follow up: Rate change 6 mcg/min nn1 01:00 Follow up: BP 84 / 54 nn1 01:00 Follow up: Rate change 8 mcg/min nn1 01:22 Follow up: BP 87 / 50 nn1 01:23 Follow up: Rate change 10 mcg/min nn1 02:58 Follow up: Rate change 8 mcg/min nn1 03:27 Follow up: BP 103 / 56; Pulse 126 bpm nn1 03:27 Follow up: Rate change 6 mcg/min nn1 03:27 Drug: Acetaminophen 650 mg [acetaminophen 325 mg tablet (2 tabs)] Route: PO; nn1 Signatures: Dispatcher [employer] EDMS Asher Boles, Home Health Care Coordinator Unit ml3 Sd Clifford DO DO mm11 Donnie Anne, Reg Reg kf3 Rod Waterman RN RN nn1 Leonidas Sanchez 6 The chart was reviewed and I authenticate all verbal orders and agree with the evaluation and treatment provided.Attachments: 09/30 23:01 [facility] Payment Agreement kf3 MTDD
[2016-10-01] MEDS: HumaLOG INSULIN (NovoLOG) PER UNIT SC SCH ×4 (08:03→20:39)
[2016-10-01] MEDS: LEVOTHYROXINE 0.05 MG TAB (50 MCG) PO SCH (08:05)
--- NOTE | 2016-10-01 08:58 | IPNPDOC ---
Assessment/Plan Date Seen The patient was seen on 10/01/16. Problems Problems: (1) Respiratory distress Status: Acute Problem Text: No H&P is available at this time. I have spoken with medical records and asked them to prioritize the buckshot swage operator. Respiratory status improved. Patient states her breathing is significantly better this morning. She is at 100% on 3L NC and the nurse is weening her down. Will continue nebulizer therapy. Patient reaffirmed her wishes to be DNR today and desires no aggressive measures. (2) Hypotension Status: Acute Problem Text: Patient has h/o htn, however has been hypotensive requiring norepi drip in ICU. Pressures currently stable at 100/52 on 3mcg. Will continue drip at this time and leave management to Dr. Au, her outpatient first coat operator who has been consulted. (3) CHF (congestive heart failure) Permanent Comment: ECHO 04/22/2016: Moderate calcific aortic stenosis with mild insufficiency. Severe mitral annular calcification without inflow tract obstruction but mild - moderate insufficiency. Could not rule out a small sessile vegetation but no pedunculated mass was observed. Borderline concentric left ventricle hypertrophy with normal wall motion. Mildly dilated left atrium with Doppler sign of a degree of impaired LV diastolic function and possibly elevated mean left atrial pressure. Normal right heart chamber sizes with Doppler evidence of moderate pulmonary hypertension. Mildly dilated IVC with slightly reduced respiratory collapse suggestive an elevated central venous pressure. Comparing today's study with that of February 10, 2015, there did not appear to be dramatic change. Last Edited By: Mell Banda NP on Apr 22, 2016 10:07 Status: Chronic Problem Text: Patient has h/o CHF, however also needs fluids at this time due to hypotension. Will need to balance pressures against fluid overload. Will defer to cardiology management at this time. Patient unable to lay flat for a central line insertion. Technology Lab Teacher recommended PICC line if a central line is required. She is currently on plavix and they did not want to attempt a central line in the ED. (4) CKD (chronic kidney disease) Status: Chronic Problem Text: Cr elevated today compared to most recent labs. Will continue IVF at this time. Difficult to balance CKD vs CHF. Will defer fluid management to cardiology at this time. (5) HTN (hypertension) Status: Chronic Problem Text: Patient has h/o htn. has been hypotensive this admission. Will continue holding her antihypertensive agents. Will defer management to cardiology. (6) DM2 (diabetes mellitus, type 2) Status: Chronic Problem Text: Patient currently has SSI with FSBS AC&HS Hypoglycemic protocol in place. Plan / Urinary Catheter Reason for insertion/continuin: Critical Pt monitoring Subjective Review of Systems CC/HPI The patient is a 81-year-old female admitted with a reason for visit of Respiratory Distress. Events since last encounter Patient states that she is doing much better this morning. She states that her main complaint is that she is so tired. She feels her breathing is much improved. She did have an episode of chest pain this morning, but says it has resolved now. General: Reports: Fatigue Constitutional: Denies: Chills, Fever Pulmonary: Reports: Dyspnea (improved) Cardiovascular: Reports: Chest Pain (this morning, resolved) Gastrointestinal: Denies: Abdominal Pain, Constipation, Diarrhea, Nausea, Vomiting Objective Physical Examination General Exam: Positive: Alert, Cooperative Eye Exam: Positive: EOMI, Negative: Sclera icteric ENT Exam: Positive: Atraumatic, Negative: Mucous membr. moist/pink Chest Exam: Positive: Clear to auscultation, Negative: Rales, Rhonchi, Wheezing Heart Exam: Positive: Normal S1, Normal S2, Rate Normal, Regular Rhythm Extremity Exam: Positive: Edema (2+ chronic) Psych Exam: Positive: Oriented x 3 Laboratory Data Labs 24H Laboratory Tests 2 09/30/16 23:28: Arterial Blood pH 7.356, Arterial Blood Partial Pressure CO2 41.9, Arterial Blood Partial Pressure O2 78.2, Arterial Blood Total CO2 24.2, Arterial Blood HCO3 22.9, Arterial Blood Base Excess -2.5L, Arterial Blood Oxygen Saturation 95.3, Blood Gas Bicarbonate Standard 22.4, Oxygen Delivery Device NASAL JORGE L 10/01/16 00:38: Anion Gap 9, B-Type Natriuretic Peptide 279H, White Blood Count 10.4H, Red Blood Count 3.49L, Hemoglobin 9.7L, Hematocrit 31.7L, Mean Corpuscular Volume 90.7, Mean Corpuscular Hemoglobin 27.7, Mean Corpuscular Hemoglobin Concent 30.5L, Red Cell Distribution Width 16.4H, Platelet Count 206, Neutrophils (%) ( Auto) 73.1H, Lymphocytes (%) (Auto) 16.9L, Monocytes (%) (Auto) 4.6, Eosinophils (%) (Auto) 2.6, Basophils (%) (Auto) 1.7H, Neutrophils # (Auto) 7.6 , Lymphocytes # (Auto) 1.9, Monocytes # (Auto) 0.5, Eosinophils # (Auto) 0.3, Basophils # (Auto) 0.2, Blood Urea Nitrogen 66H, Creatinine 2.56H, Sodium Level 142, Potassium Level 5.1, Chloride Level 108H, Carbon Dioxide Level 25, Calcium Level 8.3L, Total Creatine Kinase 54, Creatine Kinase MB 3.1, Creatine Kinase MB Relative Index 5.74H, Glomerular Filtration Rate 19.2L, Lactic Acid Level 1.9 , Large Unclassified Cells # 0.1, Large Unclassified Cells % 1.2, Troponin I 0.28H 10/01/16 02:56: Total Creatine Kinase 90, Creatine Kinase MB 5.3H, Creatine Kinase MB Relative Index 5.88H, Troponin I 0.41#H 10/01/16 07:33: Bedside Glucose (Misc Panel) 258H 10/01/16 08:11: CBC/BMP Laboratory Tests 10/01/16 00:38 Calcium Level 8.3 L, Total Creatine Kinase 54, Red Blood Count 3.49 L, Mean Corpuscular Volume 90.7, Mean Corpuscular Hemoglobin 27.7, Mean Corpuscular Hemoglobin Concent 30.5 L, Red Cell Distribution Width 16.4 H, Neutrophils (%) ( Auto) 73.1 H, Lymphocytes (%) (Auto) 16.9 L, Monocytes (%) (Auto) 4.6, Eosinophils (%) (Auto) 2.6, Basophils (%) (Auto) 1.7 H, Neutrophils # (Auto) 7.6 , Lymphocytes # (Auto) 1.9, Monocytes # (Auto) 0.5, Eosinophils # (Auto) 0.3, Basophils # (Auto) 0.2 Microbiology Microbiology 10/01/16 Blood Culture, Received Pending 10/01/16 Blood Culture, Received Pending 10/01/16 MRSA Screen, Received Pending 10/01/16 Urine Culture, Received Pending GME ATTESTATION GME ATTESTATION My preceptor for this patient encounter was physically present in the building during the encounter and was fully available. As needed, all aspects of the patient interview, examination, medical decision making process, and medical care plan development were reviewed and approved by the preceptor. Preceptor is aware and concurs with the plan as stated in the body of this note and will attest to such by his/her cosignature. ALONDRA JOSEPH, Oct 01, 2016 08:58
[2016-10-01] MEDS: CINACALCET 30 MG TAB (SENSIPAR) PO SCH ×2 (09:02→21:06)
[2016-10-01] MEDS: ASPIRIN 81 MG ENTERIC TAB PO SCH (09:03)
[2016-10-01] MEDS: CLOPIDOGREL 75 MG TAB PO SCH (09:03)
[2016-10-01] MEDS: LACTOBACILLUS ACIDOPHILUS CAP (BACID) PO SCH ×2 (09:03→17:11)
[2016-10-01] MEDS: ALLOPURINOL 100 MG TAB PO SCH ×2 (09:03→21:06)
[2016-10-01] MEDS: MULTIVITAMINS/MINERALS THERAP 1 TAB PO SCH ×2 (09:04→21:06)
[2016-10-01] MEDS: NYSTATIN 100,000 UNITS/GM TOPICAL PWD 15 GM TOP SCH ×2 (09:04→21:06)
--- NOTE | 2016-10-01 09:09 | REP ---
Clinical: Chest pain and pulmonary edema. Comparison: 09/11/2016. Findings: Stable cardiomegaly is again suggested. Increased interstitial markings and subtle perihilar and basilar opacities may reflect elements of pulmonary interstitial edema. No obvious effusion. No pneumothorax. Skeletal structures intact. Impression: Findings suggest pulmonary interstitial edema. Signed by Erik Hamilton MD 10/01/2016 09:00 A
--- NOTE | 2016-10-01 09:36 | ECGEPIP ---
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
--- NOTE | 2016-10-01 09:53 | ECGEPIP ---
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
--- NOTE | 2016-10-01 09:56 | ECGEPIP ---
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
[2016-10-01 10:26] LABS: RENAL EPITHELIAL CELLS 1 /HPF
--- NOTE | 2016-10-01 10:36 | HPE ---
DATE OF ADMISSION: 10/01/2016 PRIMARY CARE PROVIDER: Serjio Ivan MD REASON FOR ADMISSION: Shortness of breath. HISTORY OF PRESENT ILLNESS: Patient is an 81-year-old female with past medical history significant for congestive heart failure, diabetes, anemia, non-insulin dependent diabetes, bowel problems, hypothyroidism, hypertension, stage IV kidney disease presented to the emergency room after she started complaining of shortness of breath. She called her daughter who called the ambulance and brought her into the emergency room. En route, the patient was given one dose of Lasix IV. After she was found to have his oxygen saturation of 70% on room air, she was also given one dose of nitro. Upon arrival to the emergency room, the patient was found to be initially hypoxic requiring 6 liters of nasal cannula. Shortly after she became hypotensive with systolic blood pressure 53/32, diastolic blood pressure. At that point, the patient was started on Levophed. She denies any chest pain. There were some EKG changes that appeared to look ischemic in nature. The patient also had elevated troponin. At that point emergency room provider called Dr. Au who is the patient's senior catering sales manager. Dr. Au informed the ER provider that she was recently seen at [facility] for testing and she was found to have severe coronary artery disease. However, she is not a candidate for bypass surgery given her comorbidities and age. At this time, Dr. Au recommended to try to get the patient off of the Levophed as soon as possible and he will see her in consultation the following day. Dr. Awad was also consulted to the emergency room to place central line and manage pressors. The patient is a DO NOT RESCUCITATE, DO NOT INTUBATE, currently saturations in the mid 90s on nasal cannula. Hospice was called for the admission for [facility]. REVIEW OF SYSTEMS: Unable to obtain due to patient not able to communicate, due to shortness of breath and confusion. PAST MEDICAL HISTORY: Per record. History of congestive heart failure, non-insulin dependent diabetes, anemia, glaucoma, gout, heart murmur, coronary artery disease, hypertension, hypothyroidism, stage IV kidney disease, vertigo. PAST SURGICAL HISTORY: Significant for cholecystectomy, . ALLERGIES: NSAIDS. SOCIAL HISTORY: The patient lives at home. No tobacco or alcohol use. FAMILY HISTORY: Noncontributory. HOME MEDICATIONS: - Tylenol 650 by mouth as needed - allopurinol 100 mg by mouth daily - Aspirin 81 mg by mouth daily - atorvastatin 20 mg by mouth daily - Sensipar 30 mg by mouth daily - Plavix 75 mg by mouth daily - Lasix 40 mg by mouth daily - glipizide 10 mg by mouth daily - Vistaril 25 mg by mouth daily - Bacid 1 tablet by mouth twice a day - Levothyroxine 50 mcg by mouth daily - meclizine 25 mg by mouth as needed - Midodrine 5 mg by mouth as needed for hypotension - Nystatin powder one dose topically twice a day - multivitamin 1 tablet by mouth daily - spironolactone 25 mg by mouth daily - Travatan 1 drop in each eye VITAL SIGNS: Initially, the patient had blood pressure of 109/58, which dropped in the 50s systolic. The patient requiring pressors right now. Heart rate tachycardic at 110-120. Respiratory rate 20, temperature 97.5, pulse ox 97 on 6 liters nasal cannula. HEENT: Pupils equal round reactive. Neck: Supple. Chest: Rales diffusely in all lung hernandez. Cardiac: Tachycardia, murmur appreciated. Abdomen: Soft, nontender. Extremities: +2 to 3 pitting edema bilaterally. What appears to be healing cellulitis. Neuro: Unable to do a full neuro exam at this time. LABORATORY FINDINGS: WBC 7.4, hemoglobin 9.7, hematocrit 31.7, platelet count 206, sodium 142, potassium 5.1, chloride 108, BUN 66, creatinine 2.56, fasting glucose 219, lactic acid 1.9, troponin 0.281, went up to 0.41, BNP 279, blood gas 7.35, pCO2 41, pO2 78, bicarb 22.9. ASSESSMENT/PLAN: 1. Respiratory distress secondary to congestive heart failure plus or minus pulmonary hypertension. The patient received one dose of Lasix en route, 10 mg. We will currently hold all diuretics due to the patient's hypotension. The patient is a DO NOT RESUSCITATE, DO NOT INTUBATE. She will be went ICU. 2. Hypotension. Patient is currently on Levophed drip and will try to titrate the patient off of the Levophed drip. Will hold Lasix and spironolactone at this time. 3. Sbe-AG-ldiyaxkua myocardial infarction (NSTEMI). The patient has known cardiac disease, not a candidate for bypass surgery. Dr. Au is consulted and has agreed to see patient in consultation. He did not find any benefit in starting the patient on heparin drip at this time. His only recommendation is to get the patient off of pressors as soon as possible. We will continue to trend cardiac enzymes and a repeat EKGs. 4. Chronic kidney disease. The patient has acute on chronic kidney disease at this time, likely secondary to hypotension. 5. History of gout. Continue home medication. 6. Diabetes. We will start the patient on sliding scale before meals and at bedtime. 7. Deep venous thrombosis prophylaxis. Lovenox subcutaneously daily. MTDD
[2016-10-01] MEDS: ACETAMINOPHEN TAB 650MG DOSE (2X325MG) PO PRN (12:08)
--- NOTE | 2016-10-01 12:35 | CR.PDOC ---
[facility] Cardiology Consultation Date of Consultation 10/01/16 Cadiology Consultation REFERRING PHYSICIAN: Marquita Gaston REASON FOR REFERRAL: Cardiogenic shock, acute on chronic diastolic heart failure HISTORY OF PRESENT ILLNESS: Mrs. Shyanne Adams is a pleasant 81-year-old woman with extensive coronary artery disease not amenable to either percutaneous coronary intervention or cardiac surgery (too high risk). She has chronic diastolic heart failure, orthostatic hypotension, prior and STEMI (elevated troponin I 4.23 (April 2016), abnormal ECG, degenerative calcific aortic valve disease with aortic stenosis and aortic regurgitation, mitral annular calcification with mitral regurgitation, hypercholesterolemia, cardiomegaly, chronic kidney disease (prior ALEXA April 2016), chronic anemia, renal secondary hyperparathyroidism, guilt, type 2 diabetes, morbid obesity, chronic venous insufficiency, history of cellulitis left leg with sepsis April 2016, GERD, hypothyroidism, and prior upper GI bleed (status post partial gastrectomy). Echocardiogram Doppler 04/21/2016 LVEF 55%. IVS 1.2 cm, posterior wall 1.2 cm, left atrium 4.4 cm Borderline concentric LVH. Normal LV wall motion & systolic function. Mild left atrial dilatation. Impaired LV diastolic function with possible elevated mean left atrial pressure. Aortic valve velocity 3.1 m/s, mean aortic valve gradient 27 mmHg consistent with moderate aortic stenosis. Estimated RV systolic pressure 40-45 mmHg, inferior vena cava 2.4 cm. Suggestive of moderate pulmonary hypertension. Inferior vena cava pyothorax consistent with elevated CVP. Dobutamine stress SPECT myocardial perfusion imaging June 2016 1. No stress inducible angina. 2. Electrographically inconclusive for detection of myocardial ischemia due to baseline repolarization Maladies. 3. Partially reversible mild size inferior/inferolateral myocardial perfusion defect suggestive of both prior infarction and dobutamine inducible myocardial ischemia in the distribution of the right coronary artery. Reversible mild size apical defect suggestive of dobutamine inducible myocardial ischemia in the distribution of the left anterior descending coronary artery. Mild reduction in overall LV systolic function. Multiple regional wall motion abnormalities. Cardiac catheterization 07/11/2016 [facility] Left main: 40-50% distal stenosis. LAD: 50% proximal stenosis. LCx: Dominant. 90% stenosis at origin of OM1. 90% mid LCx stenosis. 90% stenosis ON 3. RCA: Nondominant, angiographically normal. Mild aortic regurgitation. Patient has been seen by cardiac surgeon Dr. Gris Mcgraw in consultation following cardiac catheterization and was considered too high risk for traditional aortic valve replacement & CABG. She has also been seen by casting machine set up operator Dr. Venkatesh Esparza and considered not amenable to percutaneous coronary intervention. She was supposed to have been referred to Dr. Vik Haynes by Dr. Venkatesh Esparza for a second opinion with regards to cardiac surgery; the patient tells me that this has not occurred. Patient is currently DNR status. Patient tells me that she does not wish to undergo cardiac surgery. At this time she wishes only for medical therapy. No chest, neck, upper extremity, or epigastric pain, pressure, tightness, heaviness, squeezing, or burning with or without exertion. Shortness of breath: Patient reports chronic exertional shortness of breath with less than ordinary activities of daily living such as walking short distances with her quad walker. Beginning yesterday evening she developed rapidly progressive dyspnea at rest and therefore came to the emergency room. No orthopnea, or paroxysmal nocturnal dyspnea. Patient reports chronic bilateral leg/ankle edema. Early this morning at [facility] ER the patient was found to have hypotension and decompensated heart failure. She received IV furosemide and was placed on norepinephrine IV because of hypotension. Her initial troponin I level was indeterminate. No presyncope or syncope. No palpitations. No embolic events. No claudication. Mild aortic regurgitation. Severe mitral annular calcification, no mitral stenosis, mild-moderate mitral regurgitation. ALLERGIES: Please see below. HOME MEDICATIONS: Please see below. CURRENT MEDICATIONS: Please see below. PAST MEDICAL & SURGICAL HISTORY: CAD NSTEMI April 2016 (troponin I 4.23) Chronic diastolic heart failure Orthostatic hypotension Abnormal ECG Degenerative, calcific aortic valve disease with moderate aortic stenosis and mild aortic regurgitation Severe mitral annular calcification with mild-moderate mitral regurgitation; no mitral stenosis Chronic kidney disease Chronic anemia Renal secondary hyperparathyroidism Hypothyroidism Gout Type 2 diabetes Morbid obesity Chronic venous insufficiency Cellulitis (Staphylococcus aureus F leg cellulitis with sepsis April 2016) GERD Left breast biopsy section Cholecystectomy Cataract extraction Partial gastrectomy secondary to ulcers SOCIAL HISTORY: , mother of 4, retired. Requires assistance for ambulation but otherwise independent living. Amylase with a quad walker. Prior smoking history for several months for which she quit 40-50 years ago. No alcohol. REVIEW OF SYSTEMS: Wears glasses. Hearing loss. Abdominal gas/bloating. Polyuria. Arthritis. Headaches. Vertigo. Anxiety and depression. Hearing loss.: Tolerance. Anemia. Other review of system items as per HPI. All other 10 point review of systems questions negative. FAMILY HISTORY: Family history unknown. PHYSICAL EXAMINATION: VITAL SIGNS: Please see below. GENERAL APPEARANCE: Morbidly obese. Not in any respiratory or psychologic distress. No gross head, facial, or skeletal deformities. EYES: No conjunctival pallor, scleral icterus or xanthelasma. ENT/Mouth: Some missing teeth. NECK: Jugular Venous Pulsations: 10 cm Trachea midline. No palpable thyroid. EXTREMITIES: No clubbing, nailbed cyanosis, or splinter hemorrhages. SKIN: Stasis dermatitis both legs. No pallor or icterus. NEUROLOGIC/PSYCHOLOGIC: Oriented to person, place, and time. Mood and affect normal. Speech normal. MUSCULOSKELETAL: Curvature of the spine normal. Gross motor strength and tone normal. No muscle atrophy, fasciculations, or tremors. Gait not appropriate to test at this time. THORAX: Breathing appears unlabored with normal expansion. No dullness to percussion. Normal breath sounds. No crackles, wheezes, or prolonged expiration. HEART: No anterior chest scars or devices. No palpable apex beat. No left parasternal lifts, heaves, or thrills. S1 normal. S2 normal. No S3 or S4. No systolic clicks, opening snap, pericardial knock, or pericardial friction rubs Grade 2 systolic ejection murmur maximal right second interspace with radiation to the carotids. No diastolic murmurs appreciated. ARTERIAL PULSES: Carotids normal in volume and contour and without bruits. No palpable abdominal aorta. Femoral pulses 2+/2 Pedal pulses 2+/2 LOWER EXTREMITY EDEMA: 5 mm left & right mid & distal pitting edema. ABDOMEN: Abdomen soft nontender with normal bowel sounds. No abdominal bruits. No hepatomegaly, splenomegaly, or abdominal masses. Liver span could not be determined due to abdominal obesity. Stool for occult blood not indicated. Stool for occult blood ordered because patient being considered for anticoagulant therapy. Electrocardiogram: ECG 10/01/2016 at 2:51 AM shows sinus tachycardia 108 BPM, leftward axis, moderate nonspecific QRS widening, ST segment depression in V3, V4, V5, V6, 1, aVL, 2 suggestive of anterolateral myocardial ischemia. LABORATORY DATA: Please see below. IMAGING: I have independently visualized the patient's portable AP sitting chest x-ray acquired 09/30/2016 at 11:27 PM. Presence of cardiomegaly despite portable AP technique. Pulmonary vascular regurgitation present. Bilateral interstitial pulmonary edema. Some regions of patchy alveolar edema. Decreased right lung volume. ASSESSMENT/PLAN: 1. Cardiogenic shock. Patient currently has an acute NSTEMI, acute on chronic diastolic heart failure with acute pulmonary edema, and hypotension. Her chance of survival during this hospitalization is approximately 10%. She has been seen by casting machine set up operator in [place] (Dr. Venkatesh Esparza) who considers this patient not amenable to percutaneous coronary intervention. She has also been seen by a cardiac surgeon inserts use (Dr. Gris Mcgraw (and was considered too high risk for cardiac surgery (aortic valve replacement & CABG). Patient is currently DNR. She does not wish to undergo cardiac surgery and desires medical therapy only. Agree with current medical therapy consisting of aspirin, atorvastatin, clopidogrel, and norepinephrine IV to support central blood pressure. Medical therapy only. She is not a candidate for percutaneous coronary intervention or coronary bypass surgery. Suggest addition of IV heparin. 2. Acute on chronic diastolic heart failure. Patient is currently decompensated NYHA functional class IV. She has interstitial and some alveolar pulmonary edema on chest x-ray. Recommend IV furosemide despite hypotension. Continue norepinephrine IV for supportive central blood pressure for her heart and brain. 3. Acute SD (NSTEMI). As per problem #1. 4. CAD (pechanga vessel) without angina. As per problem #1. 5. Abnormal ECG. ECG as described above. 6. Nonrheumatic degenerative, calcific aortic valve disease with moderate aortic stenosis and mild aortic regurgitation. Patient is not a candidate for aortic valve replacement combined CABG because she is too high risk. Furthermore patient does not wish to undergo cardiac surgery. 7. Nonrheumatic mitral valve disease (severe mitral annular calcification) with mild-moderate mitral regurgitation; no mitral stenosis. Stable. Thank you kindly for asking me to participate in the care of your patient. Vital Signs/I&O Vital Signs Date Time Temp Pulse Resp B/P Pulse Ox O2 Delivery O2 Flow Rate FiO2 10/01/16 10:30 102 20 87/52 99 Nasal Cannula 3.0 10/01/16 07:30 98.2 Height (in): 48 Weight (kg): 111 BMI (kg): 74.7 Laboratory Data Labs 24H Laboratory Tests 2 09/30/16 23:28: Arterial Blood pH 7.356, Arterial Blood Partial Pressure CO2 41.9, Arterial Blood Partial Pressure O2 78.2, Arterial Blood Total CO2 24.2, Arterial Blood HCO3 22.9, Arterial Blood Base Excess -2.5L, Arterial Blood Oxygen Saturation 95.3, Blood Gas Bicarbonate Standard 22.4, Oxygen Delivery Device NASAL JORGE L 10/01/16 00:38: Anion Gap 9, B-Type Natriuretic Peptide 279H, White Blood Count 10.4H, Red Blood Count 3.49L, Hemoglobin 9.7L, Hematocrit 31.7L, Mean Corpuscular Volume 90.7, Mean Corpuscular Hemoglobin 27.7, Mean Corpuscular Hemoglobin Concent 30.5L, Red Cell Distribution Width 16.4H, Platelet Count 206, Neutrophils (%) ( Auto) 73.1H, Lymphocytes (%) (Auto) 16.9L, Monocytes (%) (Auto) 4.6, Eosinophils (%) (Auto) 2.6, Basophils (%) (Auto) 1.7H, Neutrophils # (Auto) 7.6 , Lymphocytes # (Auto) 1.9, Monocytes # (Auto) 0.5, Eosinophils # (Auto) 0.3, Basophils # (Auto) 0.2, Blood Urea Nitrogen 66H, Creatinine 2.56H, Sodium Level 142, Potassium Level 5.1, Chloride Level 108H, Carbon Dioxide Level 25, Calcium Level 8.3L, Total Creatine Kinase 54, Creatine Kinase MB 3.1, Creatine Kinase MB Relative Index 5.74H, Glomerular Filtration Rate 19.2L, Lactic Acid Level 1.9 , Large Unclassified Cells # 0.1, Large Unclassified Cells % 1.2, Troponin I 0.28H 10/01/16 02:56: Total Creatine Kinase 90, Creatine Kinase MB 5.3H, Creatine Kinase MB Relative Index 5.88H, Troponin I 0.41#H 10/01/16 07:33: Bedside Glucose (Misc Panel) 258H 10/01/16 08:11: Urine Amorphous Sediment SMALLH, Urine Appearance CLOUDYH, Urine Color YELLOW, Urine pH 5.0, Urine Specific Temple 1.013, Urine Protein NEGATIVE, Urine Glucose (UA) 1+H, Urine Ketones NEGATIVE, Urine Urobilinogen 0.2, Urine Bilirubin NEGATIVE, Urine Leukocyte Esterase 3+H, Urine Bacteria (Auto) NEGATIVE , Urine Blood 1+H, Urine Calcium Carbonate Cryst(Auto) , Urine Calcium Oxalate Cryst (Auto) , Urine Calcium Phosphate Nellie (Auto) , Urine Cellular Casts , Urine Cystine Crystals , Urine Granular Casts (Auto) , Urine Hyaline Casts (Auto ) 5, Urine Leucine Crystals , Urine Mucus (Auto) SMALL, Urine Nitrite NEGATIVE, Urine Oval Fat Bodies (Auto) , Urine RBC (Auto) 9H, Urine Renal Epithelial Cells 1, Urine Sperm (Auto) , Urine Squamous Epithelial Cells 1, Urine Transitional Epithelial Cells , Urine Trichomonas (Auto) , Urine Triple Phosphate Cryst (Auto) , Urine Tyrosine Crystals , Urine Uric Acid Crystals ( Auto) , Urine WBC (Auto) TNTCH, Urine Waxy Casts (Auto) , Urine Yeast-Like Cells (Auto) 10/01/16 09:09: Creatine Kinase MB 114.7H, Creatine Kinase MB Relative Index 15.71H, Total Creatine Kinase 730#H, Troponin I 17.40#*H CBC/BMP Laboratory Tests 10/01/16 00:38 Calcium Level 8.3 L, Total Creatine Kinase 54, Red Blood Count 3.49 L, Mean Corpuscular Volume 90.7, Mean Corpuscular Hemoglobin 27.7, Mean Corpuscular Hemoglobin Concent 30.5 L, Red Cell Distribution Width 16.4 H, Neutrophils (%) ( Auto) 73.1 H, Lymphocytes (%) (Auto) 16.9 L, Monocytes (%) (Auto) 4.6, Eosinophils (%) (Auto) 2.6, Basophils (%) (Auto) 1.7 H, Neutrophils # (Auto) 7.6 , Lymphocytes # (Auto) 1.9, Monocytes # (Auto) 0.5, Eosinophils # (Auto) 0.3, Basophils # (Auto) 0.2 FSBS Laboratory Tests Test 10/01/16 07:33 Range/Units Bedside Glucose (Misc Panel) 258 83-110 MG/DL Microbiology Microbiology 10/01/16 Blood Culture, Received Pending 10/01/16 Blood Culture, Received Pending 10/01/16 MRSA Screen, Received Pending 10/01/16 Urine Culture, Received Pending Home Medications Scheduled (Dexilant) 30 Mg Cap 30 MG PO DAILY (Reported) Allopurinol (Allopurinol) 100 Mg Tab 100 MG PO BID (Reported) Aspirin (Aspirin 81) 81 Mg Tab 81 MG PO DAILY (Reported) Atorvastatin Calcium (Atorvastatin Calcium) 20 Mg Tab 20 MG PO QHS (Reported) Cinacalcet Hydrochloride (Sensipar) 30 Mg Tab 30 MG PO ASDIRECTED (Reported) BID ON MONDAYS AND FRIDAYS Ciprofloxacin HCl (Ciprofloxacin HCl) 250 Mg Tab 250 MG PO DAILY (Reported) Clopidogrel Bisulfate (Plavix) 75 Mg Tab 75 MG PO DAILY (Reported) Dorzolamide HCl (Dorzolamide HCl) 200 Drop/10 Ml Soln 1 DROP OU BID (Reported) Furosemide (Furosemide) 40 Mg Tab 40 MG PO BID (Reported) Glipizide (Glipizide) 10 Mg Tab 10 MG PO BID (Reported) Hydroxyzine HCl (Hydroxyzine HCl) 25 Mg Tab 25 MG PO TID (Reported) Lactobacillus Acidophilus (Bacid) 1 Tab Tab 1 TAB PO BIDWM (Reported) Levothyroxine Sodium (Synthroid) 50 Mcg Tab 50 MCG PO DAILY (Reported) Multivitamins *[facility] STOCKED* (Thera M Plus *[facility] STOCKED*) 1 Tab Tab 0.5 TAB PO BID (Reported) Nystatin (Nystatin Powder) 100,000 Unit/Gm Pow 1 DOSE TOP BID (Reported) APPLIES TO GROIN AREA Spironolactone (Aldactone) 25 Mg Tab 25 MG PO DAILY (Reported) Travoprost (Travatan Z) 50 Drop/2.5 Ml Soln 1 DROP OU QHS (Reported) Scheduled PRN Acetaminophen (Tylenol) 325 Mg Tab 650 MG PO Q4HP PRN PRN MILD PAIN OR FEVER ( Reported) Meclizine HCl (Meclizine HCl) 25 Mg Tab 25 MG PO DAILY PRN PRN DIZZINESS ( Reported) Midodrine HCl (Midodrine HCl) 5 Mg Tab 5 MG PO DAILY PRN PRN HYPOTENSION ( Reported) Current Medications Current Medications Acetaminophen (Tylenol) 650 mg Q4HP PRN PO MILD PAIN OR FEVER; Start 10/01/16 at 06:15; Stop 10/31/16 at 06:14 Acetaminophen 650 mg 650 mg STK-MED ONCE As Ordered ; Start 10/01/16 at 03:24; Stop 10/01/16 at 03:25; Status DC Albuterol/ Ipratropium (Duoneb (Ipr 0.5mg/Alb 2.5mg)) 3 ml STK-MED ONCE As Ordered ; Start 10/01/16 at 00:14; Stop 10/01/16 at 00:15; Status DC Albuterol/ Ipratropium (Duoneb (Ipr 0.5mg/Alb 2.5mg)) 6 ml STK-MED ONCE As Ordered ; Start 09/30/16 at 23:24; Stop 09/30/16 at 23:25; Status DC Allopurinol (Zyloprim) 100 mg BID PO Last administered on 10/01/16at 09:03; Start 10/01/16 at 09:00; Stop 10/31/16 at 08:59 Aspirin (Ecotrin) 81 mg DAILY PO Last administered on 10/01/16at 09:03; Start 10/01/16 at 09:00; Stop 10/31/16 at 08:59 Atorvastatin Calcium (Lipitor) 20 mg QHS PO ; Start 10/01/16 at 21:00; Stop at 20:59 Cinacalcet (Sensipar) 30 mg MoFr@,21 PO Last administered on 10/01/16at 09:02 ; Start 10/01/16 at 09:00; Stop 10/31/16 at 08:59 Clopidogrel Bisulfate (PLAVix) 75 mg DAILY PO Last administered on 10/01/16at 09:03; Start 10/01/16 at 09:00; Stop 10/31/16 at 08:59 Dextrose (Dextrose 50%) 25 ml ASDIRECTED PRN IV SEE LABEL COMMENTS; Start at 05:15; Stop 10/31/16 at 05:14 Glucagon (Glucagon) 1 mg ASDIRECTED PRN SC SEE LABEL COMMENTS; Start 10/01/16 at 05:15; Stop 10/31/16 at 05:14 Glucose (Glucose) 16 GM ASDIRECTED PRN PO SEE LABEL COMMENTS; Start 10/01/16 at 05:15; Stop 10/31/16 at 05:14 Home Med (Med Rec Complete!) ASDIRECTED XX ; Start 10/01/16 at 00:00; Stop at 00:00; Status DC Insulin Human Lispro (HumaLOG INSULIN) SEE PROTOCOL TABLE AC SC Last administered on 10/01/16at 08:03; Start 10/01/16 at 07:30; Stop 10/31/16 at 07: 29 Insulin Human Lispro (HumaLOG INSULIN) SEE PROTOCOL TABLE QHS SC ; Start at 21:00; Stop 10/31/16 at 20:59 Lactobacillus Acidophilus (Bacid) 1 ea BIDWM PO Last administered on at 09:03; Start 10/01/16 at 08:00; Stop 10/31/16 at 07:59 Levothyroxine Sodium (Synthroid) 0.05 mg DAILY@06 PO Last administered on 10/01at 08:05; Start 10/01/16 at 06:00; Stop 10/31/16 at 05:59 Multivitamins (Theragram-M) 0.5 tab BID PO Last administered on 10/01/16at 09: 04; Start 10/01/16 at 09:00; Stop 10/31/16 at 08:59 Norepinephrine Bitartrate (Levophed) 8 mg STK-MED ONCE As Ordered ; Start 10/01 at 00:39; Stop 10/01/16 at 00:40; Status DC Norepinephrine Bitartrate/ Dextrose (Levophed/ Dextrose 5%) 508 ml @ 15 mls/hr Q24H IV ; Start 10/01/16 at 05:00; Stop 10/01/16 at 12:00 Norepinephrine Bitartrate/ Dextrose (Levophed/ Dextrose 5%) 508 ml @ 15 mls/hr Q24H IV ; Start 10/01/16 at 12:00; Stop 10/31/16 at 11:59 Nystatin 1 dose 1 dose BID TOP Last administered on 10/01/16at 09:04; Start at 09:00; Stop 10/31/16 at 08:59 Allergies Allergies: Coded Allergies: Metformin (Unverified Adverse Reaction, Unknown, INCREASES BUN, 01/06/13) NSAIDs (Unverified Adverse Reaction, Unknown, ULCER, 01/06/13) Rosiglitazone (Unverified Adverse Reaction, Unknown, FLUID RETENTION, ) No Known Allergies (Verified , 11/10/08) Cliff Au Oct 01, 2016 12:35
[2016-10-01] MEDS ORDERED: HEPARIN SOD (PORCINE) 5000 UNITS/ML VIAL IV STA (12:41)
[2016-10-01] MEDS ORDERED: HEPARIN SOD (PORCINE) 5000 UNITS/ML VIAL IV SCH (12:45)
[2016-10-01] MEDS ORDERED: HEPARIN DRIP 25,000 UNITS in APPROPRIATE DILUENT 1 EA IV SCH (13:00)
[2016-10-01] MEDS: NOREPINEPHRINE BITARTRATE 8 MG in D5W 500 ML IV SCH (15:04)
[2016-10-01] MEDS: ATORVASTATIN 20 MG TAB PO SCH (21:06)
[2016-10-01] MEDS: FUROSEMIDE 20 MG/2 ML VIAL (J1940) IV SCH (22:26)
[2016-10-02] VITALS (25 sets, daily range): BP systolic 81–107; BP diastolic 50–60
[2016-10-02] MEDS: LEVOTHYROXINE 0.05 MG TAB (50 MCG) PO SCH (05:52)
[2016-10-02 06:03] LABS: MEAN CORPUSCULAR HEMOGLOBIN 27.6 pg (27.0-33.0); MEAN CORPUSCULAR HGB CONC 30.4 g/dl (32.0-36.5); MEAN CORPUSCULAR VOLUME 90.5 fl (80.0-96.0); RED CELL DISTRIBUTION WIDTH 16.5 % (11.5-14.5); WHITE BLOOD COUNT 8.1 K/mm3 (4.0-10.0)
[2016-10-02 06:26] LABS: ALBUMIN 2.5 GM/DL (3.2-5.2); ALBUMIN/GLOBULIN RATIO 0.61 (1.00-1.93); BILIRUBIN,TOTAL 0.4 MG/DL (0.2-1.0); CALCIUM LEVEL 8.1 MG/DL (8.8-10.2); CREATININE FOR GFR 2.68 MG/DL (0.55-1.02); GLOMERULAR FILTRATION RATE 18.2 (>32); POTASSIUM SERUM 4.8 MEQ/L (3.5-5.1); TOTAL PROTEIN 6.6 GM/DL (6.4-8.2)
[2016-10-02] MEDS: HumaLOG INSULIN (NovoLOG) PER UNIT SC SCH ×4 (08:15→21:00)
[2016-10-02] MEDS: LACTOBACILLUS ACIDOPHILUS CAP (BACID) PO SCH ×2 (08:15→17:11)
[2016-10-02] MEDS: ASPIRIN 81 MG ENTERIC TAB PO SCH (09:05)
[2016-10-02] MEDS: ALLOPURINOL 100 MG TAB PO SCH ×2 (09:05→21:44)
[2016-10-02] MEDS: CLOPIDOGREL 75 MG TAB PO SCH (09:06)
[2016-10-02] MEDS: MULTIVITAMINS/MINERALS THERAP 1 TAB PO SCH ×2 (09:06→21:44)
[2016-10-02] MEDS: NYSTATIN 100,000 UNITS/GM TOPICAL PWD 15 GM TOP SCH ×2 (09:07→21:45)
--- NOTE | 2016-10-02 10:07 | IPN ---
DATE: 10/02/2016 Shyanne is seen in intensive care unit (ICU). She was seen in consultation by Dr. Au yesterday. Appreciate his consultation, which has been reviewed. She was admitted with cardiogenic shock after suffering another non-ST elevation myocardial infarction. She is not a candidate for either cardiothoracic open or percutaneous interventional cardiologic revascularization. She also expressly does not want anything other than medical care for her coronary disease. She has a DO NOT RESUSCITATE status and thinks that she is probably going to soon (see below). She has no recurrent chest pain. She less short of breath than yesterday. PHYSICAL EXAMINATION: 97/53, pulse 105, respiratory rate 18, 100% oxygen saturation on 3 liters. Intake and output was positive 750 mL yesterday. GENERAL APPEARANCE: Elderly, lying in bed, no distress. Sleeping comfortably at an incline. She has some jugular venous distention (JVD) present. LUNGS have decreased breath sounds at the bases. HEART: Regular rate and rhythm, tachycardic. 1/6 systolic ejection murmur. ABDOMEN: Soft, nontender, no masses. 1-2 peripheral edema with venous stasis dermatitis. LABORATORIES: White count 8.1, hemoglobin 8.9, platelets 154, sodium 140, potassium 4.8, BUN 73, creatinine 2.7, glucose 185. Troponin has peaked at 47. PTTs are being followed regularly. IMPRESSION: 1. Cardiogenic shock. She is still on norepinephrine drip. She did not have any diuresis yesterday, indeed she is net positive. Her prognosis is poor. She is not a candidate for surgical or interventional correction of her coronary artery disease and aortic valve disease. She is a DO NOT RESUSCITATE status. 2. Acute on chronic diastolic congestive heart failure (CHF). She was net positive yesterday. She has decompensated further today. Prognosis is poor. She understands this. Nephrology and cardiology are involved. 3. Aortic valve disease. Not a candidate for open or percutaneous intervention. 4. Type 2 diabetes. She is on a sliding scale of insulin coverage at this point. 5. Hypothyroidism. Continue levothyroxine 50 mcg daily. 6. Chronic kidney disease stage 4, being followed by nephrology. They are consulted to see her while in the hospital. 7. Hyperlipidemia. Continue atorvastatin 20 mg daily. 8. Advanced directives. She has DO NOT RESUSCITATE status. We had a long discussion today. She asked "How many heart attacks am I going to have before I finally go?" She thinks she is going to soon and says "I'm looking forward to seeing Lorenzo (her ) soon." She seems at peace with her decision not to pursue a lot of other medical treatment for this. Once she is weaned off the norepinephrine drip she could be transferred up to the floor.
[2016-10-02] MEDS: FUROSEMIDE 20 MG/2 ML VIAL (J1940) IV SCH (10:44)
[2016-10-02] MEDS ORDERED: MIDODRINE 5 MG TAB PO SCH (12:00)
--- NOTE | 2016-10-02 14:08 | IPNPDOC ---
[facility] Cardiology Progress Note Date of Service/Time The patient was seen on 10/02/16 at 13:58. Cardiology Progress Note SUBJECTIVE: Patient is currently on bedrest. She has not experienced any dyspnea at rest. No chest pain or chest discomfort in the past 24 hours. Overall she is feeling fine. No dizziness or light headedness. OBJECTIVE: PHYSICAL EXAMINATION: VITAL SIGNS: Please see below. GENERAL APPEARANCE: Morbidly obese. Not in any respiratory or psychologic distress. No gross head, facial, or skeletal deformities. JUGULAR VENOUS PULSATIONS: 8cm NEUROLOGIC/PSYCHOLOGIC: Oriented to person, place, and time. Mood and affect normal. Speech normal. THORAX: Breathing appears unlabored with normal expansion. No dullness to percussion. Normal breath sounds. No crackles, wheezes, or prolonged expiration. HEART: No anterior chest scars or devices. No palpable apex beat. No left parasternal lifts, heaves, or thrills. S1 normal. S2 normal. No S3 or S4. No systolic clicks, opening snap, pericardial knock, or pericardial friction rubs No murmurs. LOWER EXTREMITY EDEMA: 5 mm left & right mid & distal pitting edema. ABDOMEN: Abdomen soft nontender with normal bowel sounds. No abdominal bruits. LABORATORY WORK: Please see below. ASSESSMENT AND PLAN: 1. Cardiogenic shock. Ongoing cardiogenic shock. Patient is comfortable. She has CKD stage IV level renal dysfunction. She has She is DNR status. She is currently on norepinephrine IV. She is scheduled to have a PIC line placed. I will add midodrine 10 mg 3 times a day before meals in the hope of being able to get her off of norepinephrine IV. Prognosis remains poor. I have ordered an echocardiogram Doppler to assess LV systolic and diastolic function. 2. Acute on chronic diastolic heart failure. Patient remains decompensated. Dosage of IV furosemide will be increased. Blood pressure too low for ACEI or ARB. As noted above, an echocardiogram Doppler was ordered. 3. NSTEMI acute myocardial infarction. Patient is not a candidate for percutaneous coronary intervention or coronary artery bypass graft surgery. Continue medical therapy consisting of aspirin, clopidogrel, statin, and heparin. 4. CAD ([place] vessel). As per problem #3. 5. Abnormal ECG. Stable. 6. Nonrheumatic aortic stenosis. Moderate aortic stenosis. Patient is not a candidate for cardiac surgery. 7. Nonrheumatic mitral valve disease with mild-moderate mitral regurgitation. Stable. Vital Signs/I&O VS/I&O Vital Signs Date Time Temp Pulse Resp B/P Pulse Ox O2 Delivery O2 Flow Rate FiO2 10/02/16 13:00 101 18 95/54 99 Nasal Cannula 1.0 10/02/16 12:00 97.7 I&O- Last 24 Hours up to 6 AM 10/02/16 06:00 Intake Total 1792.4 ml Output Total 1375 ml Balance 417.4 ml Weight (kg): 75.2 Laboratory Data 24H LABS Laboratory Tests 2 10/01/16 14:35: Creatine Kinase MB 153.2H, Creatine Kinase MB Relative Index 14.42H, Total Creatine Kinase 1062H, Troponin I 44.80#*H 10/01/16 15:06: Activated Partial Thromboplast Time 38.2H 10/01/16 17:02: Bedside Glucose (Misc Panel) 162H 10/01/16 20:15: Activated Partial Thromboplast Time 102.6H 10/01/16 20:38: Bedside Glucose (Misc Panel) 198H 10/01/16 20:52: Creatine Kinase MB 117.9H, Creatine Kinase MB Relative Index 10.80H, Total Creatine Kinase 1091H, Troponin I 47.40*H 10/02/16 05:47: Activated Partial Thromboplast Time 119.5H, Blood Urea Nitrogen 73H, Creatinine 2.68H, Sodium Level 140, Potassium Level 4.8, Chloride Level 108H, Carbon Dioxide Level 21, Calcium Level 8.1L, Aspartate Amino Transf (AST/SGOT) 193H, Alanine Aminotransferase (ALT/SGPT) 54, Alkaline Phosphatase 89, Total Bilirubin 0.4, Total Protein 6.6, Albumin 2.5L, Albumin/Globulin Ratio 0.61L, Anion Gap 11, Glomerular Filtration Rate 18.2L 10/02/16 11:45: Bedside Glucose (Misc Panel) 159H CBC/BMP Laboratory Tests 10/02/16 05:47 Calcium Level 8.1 L, Aspartate Amino Transf (AST/SGOT) 193 H, Alanine Aminotransferase (ALT/SGPT) 54, Alkaline Phosphatase 89, Total Bilirubin 0.4, Total Protein 6.6, Albumin 2.5 L, Red Blood Count 3.23 L, Mean Corpuscular Volume 90.5, Mean Corpuscular Hemoglobin 27.6, Mean Corpuscular Hemoglobin Concent 30.4 L, Red Cell Distribution Width 16.5 H FSBS Laboratory Tests Test 10/01/16 17:02 10/01/16 20:38 10/02/16 11:45 Range/Units Bedside Glucose (Misc Panel) 162 198 159 83-110 MG/DL Microbiology Microbiology 10/01/16 Blood Culture - Preliminary, Resulted No growth after 24 hours . All specim... 10/01/16 Blood Culture - Preliminary, Resulted No growth after 24 hours . All specim... 10/01/16 MRSA Screen - Final, Complete 10/01/16 Urine Culture, Received Pending Cliff Au Oct 02, 2016 14:08
[2016-10-02] MEDS: NOREPINEPHRINE BITARTRATE 8 MG in D5W 500 ML IV SCH (14:15)
[2016-10-02] MEDS: HEPARIN SOD (PORCINE) 5000 UNITS/ML VIAL SQ SCH ×2 (14:16→21:44)
[2016-10-02] MEDS ORDERED: SODIUM CHLORIDE 0.9% INJ 10 ML SYR IV PRN (14:45)
[2016-10-02] MEDS: MIDODRINE 5 MG TAB PO SCH (15:44)
[2016-10-02] MEDS: FUROSEMIDE 100 MG/10 ML VIAL (J1940) IV SCH (15:45)
[2016-10-02] MEDS: SODIUM CHLORIDE 0.9% INJ 10 ML SYR IV SCH (17:12)
[2016-10-02] MEDS: ATORVASTATIN 20 MG TAB PO SCH (21:44)
[2016-10-02] MEDS: ACETAMINOPHEN TAB 650MG DOSE (2X325MG) PO PRN (23:57)
[2016-10-03] VITALS (33 sets, daily range): BP systolic 79–117; BP diastolic 44–63
[2016-10-03] MEDS: SODIUM CHLORIDE 0.9% INJ 10 ML SYR IV SCH ×2 (05:39→16:57)
[2016-10-03] MEDS: LEVOTHYROXINE 0.05 MG TAB (50 MCG) PO SCH (05:39)
[2016-10-03] MEDS: HEPARIN SOD (PORCINE) 5000 UNITS/ML VIAL SQ SCH ×3 (05:40→23:19)
[2016-10-03 05:46] LABS: MEAN CORPUSCULAR HEMOGLOBIN 27.8 pg (27.0-33.0); MEAN CORPUSCULAR HGB CONC 30.7 g/dl (32.0-36.5); MEAN CORPUSCULAR VOLUME 90.5 fl (80.0-96.0); RED CELL DISTRIBUTION WIDTH 15.6 % (11.5-14.5); WHITE BLOOD COUNT 6.5 K/mm3 (4.0-10.0)
[2016-10-03 06:09] LABS: ALBUMIN 2.3 GM/DL (3.2-5.2); ALBUMIN/GLOBULIN RATIO 0.61 (1.00-1.93); BILIRUBIN,TOTAL 0.4 MG/DL (0.2-1.0); CREATININE FOR GFR 2.45 MG/DL (0.55-1.02); GLOMERULAR FILTRATION RATE 20.2 (>32); POTASSIUM SERUM 4.1 MEQ/L (3.5-5.1); TOTAL PROTEIN 6.1 GM/DL (6.4-8.2)
[2016-10-03] MEDS: MIDODRINE 5 MG TAB PO SCH ×3 (07:47→16:16)
[2016-10-03] MEDS: HumaLOG INSULIN (NovoLOG) PER UNIT SC SCH ×4 (07:47→21:00)
[2016-10-03] MEDS: LACTOBACILLUS ACIDOPHILUS CAP (BACID) PO SCH ×2 (07:47→16:57)
--- NOTE | 2016-10-03 07:56 | EDDOCDS ---
Physician Documentation [facility] Name: Shyanne Adams Age: 81 yrs Sex: Female : 1935 Arrival Date: 09/30/2016 Time: 22:17 Bed 2 Private MD: Serjio Ivan MD Disposition: 10/01/16 05:28 Hospitalization ordered by Marquita Gaston for Inpatient Admission. Preliminary diagnosis are Acute combined systolic (congestive) and diastolic (congestive) heart failure, Hypoxemia, Hypotension. - Bed requested for ICU. - Status is Inpatient Admission. nn1 - Condition is Stable. - Problem is an acute exacerbation. - Symptoms have improved. Historical: - Allergies: NSAIDS (Stage IV kidney disease); ROSIGLITAZONE DERIVATIVES (Rash); - Home Meds: 1. meclizine 25 mg Oral cap daily 2. allopurinol 100 mg Oral tab 2 tabs once daily 3. aspirin 81 mg Oral tab 1 tab once daily 4. atorvastatin 20 mg oral tab 1 tab once daily 5. deyilant 30 mg daily 6. dorzolamide 2 % ophthalmic drop 7. glipizide 10 mg Oral tab 1 tab 2 times per day 8. Lasix 40 mg Oral tab 1 tab 2 times per day 9. levothyroxine 50 mcg Oral cap 1 cap once daily 10. midodrine 5 mg oral tab 11. Plavix 75 mg Oral tab 1 tab once daily 12. Sensipar 30 mg oral tab bid M and F 13. Travatan Z 0.004 % ophthalmic drop 1 drop nightly - PMHx: Anemia; CHF; Diabetes - NIDDM: controlled; Glaucoma; Gout; Heart Murmur; heart valve problem; Hypertension; Hypothyroidism; Stage IV kidney disease; Vertigo; - PSHx: Cholecystectomy; ; - Social history: Smoking status: Patient states was never smoker of tobacco. No barriers to communication noted, The patient speaks fluent Slovenian, Speaks appropriately for age. - Family history: No immediate family members are acutely ill. - : The pt / caregiver states he / she is on anticoagulants: Plavix. Home medication list is obtained from [employer] import data. - Exposure Risk Screening:: None identified. Vital Signs: 09/30 22:42 BP 132 / 75; Pulse 99; Resp 20; Temp 97.5(TE); Pulse Ox 97% on 6 lpm NC; Weight 108.86 rn1 kg / 240 lbs (R); Height 4 ft. 10 in. (147.32 cm); Pain 0/10; 22:50 BP 109 / 58 (auto/); nn1 22:50 Pulse 111 MON; Pulse Ox 100% ; nn1 23:00 BP 126 / 53 (auto/); nn1 23:00 Pulse 113 MON; Pulse Ox 100% ; nn1 23:15 BP 118 / 58 (auto/); nn1 23:15 Pulse 114 MON; Pulse Ox 99% ; nn1 23:30 BP 127 / 56 (auto/); nn1 23:30 Pulse 112 MON; Pulse Ox 99% ; nn1 23:45 BP 108 / 55 (auto/); nn1 23:45 Pulse 111 MON; nn1 10/01 00:00 BP 115 / 73 (auto/); nn1 00:00 Pulse 110 MON; Pulse Ox 99% ; nn1 00:15 BP 102 / 57 (auto/); nn1 00:15 Pulse 114 MON; Pulse Ox 95% ; nn1 00:30 BP 53 / 32 (auto/); nn1 00:30 Pulse 120 MON; Pulse Ox 95% ; nn1 00:32 BP 62 / 34 (auto/); nn1 00:32 Pulse 110 MON; Pulse Ox 97% ; nn1 00:43 BP 51 / 31 (auto/); nn1 00:43 Pulse 98 MON; Pulse Ox 96% ; nn1 00:45 BP 55 / 37 (auto/); nn1 00:45 Pulse 101 MON; Pulse Ox 97% ; nn1 00:51 Resp 18; Pulse Ox 2 lpm NC; nn1 00:51 Pulse 114 MON; Pulse Ox 95% ; nn1 00:51 Resp 18; nn1 00:52 BP 73 / 48 (auto/); nn1 00:58 Pulse 123 MON; Pulse Ox 96% ; nn1 00:59 Pulse 123 MON; Pulse Ox 95% ; nn1 00:59 BP 84 / 54 (auto/); nn1 01:00 BP 85 / 55 (auto/); nn1 01:00 BP 84 / 54; nn1 01:10 BP 99 / 54 (auto/); nn1 01:10 Pulse 127 MON; Pulse Ox 96% ; nn1 01:15 BP 91 / 54 (auto/); nn1 01:15 Pulse 128 MON; Pulse Ox 94% ; nn1 01:21 BP 87 / 50 (auto/); nn1 01:21 Pulse 127 MON; Pulse Ox 94% ; nn1 01:22 BP 87 / 50; nn1 01:30 BP 90 / 50 (auto/); nn1 01:30 Pulse 130 MON; Pulse Ox 95% ; nn1 01:45 BP 88 / 50 (auto/); nn1 01:45 Pulse 131 MON; Pulse Ox 96% ; nn1 02:00 BP 95 / 53 (auto/); nn1 02:00 Pulse 131 MON; Pulse Ox 96% ; nn1 02:15 BP 97 / 56 (auto/); nn1 02:29 Pulse 135 MON; Pulse Ox 96% ; nn1 02:30 BP 92 / 56 (auto/); nn1 02:30 Pulse 135 MON; Pulse Ox 96% ; nn1 02:45 BP 103 / 57 (auto/); nn1 02:45 Pulse 128 MON; Pulse Ox 97% ; nn1 02:58 Resp 18; Temp 97.3(TE); nn1 03:00 BP 83 / 53 (auto/); nn1 03:00 Pulse 130 MON; Pulse Ox 97% ; nn1 03:15 BP 95 / 55 (auto/); nn1 03:15 Pulse 131 MON; Pulse Ox 97% ; nn1 03:25 BP 103 / 56 (auto/); nn1 03:25 Pulse 123 MON; Pulse Ox 98% ; nn1 03:27 BP 103 / 56; Pulse 126; nn1 03:30 BP 103 / 59 (auto/); nn1 03:30 Pulse 124 MON; Pulse Ox 99% ; nn1 03:45 BP 84 / 52 (auto/); nn1 03:45 Pulse 127 MON; Pulse Ox 99% ; nn1 04:00 BP 89 / 50 (auto/); nn1 04:00 Pulse 127 MON; Pulse Ox 98% ; nn1 04:15 BP 100 / 58 (auto/); nn1 04:16 Pulse 124 MON; Pulse Ox 98% ; nn1 04:30 BP 102 / 56 (auto/); nn1 04:30 Pulse 120 MON; Pulse Ox 99% ; nn1 04:45 BP 94 / 51 (auto/); nn1 04:45 Pulse 115 MON; Pulse Ox 98% ; nn1 04:57 Pulse Ox 2 lpm NC; nn1 05:00 BP 98 / 53 (auto/); nn1 05:00 Pulse 116 MON; Pulse Ox 98% ; nn1 05:15 BP 104 / 56 (auto/); nn1 05:15 Pulse 114 MON; Pulse Ox 100% ; nn1 05:38 BP 92 / 53 (auto/); nn1 05:38 Pulse 124 MON; Pulse Ox 94% ; nn1 05:45 BP 120 / 60 (auto/); nn1 05:45 Pulse 118 MON; Pulse Ox 97% ; nn1 06:00 BP 106 / 55 (auto/); nn1 06:00 Pulse 109 MON; Pulse Ox 97% ; nn1 06:15 BP 98 / 57 (auto/); nn1 06:15 Pulse 108 MON; Pulse Ox 99% ; nn1 06:30 BP 95 / 52 (auto/); nn1 06:30 Pulse 107 MON; Pulse Ox 99% ; nn1 06:36 Resp 20; nn1 06:49 BP 107 / 57 RA Supine (auto/reg); Pulse 115 MON; Temp 97.1(TE); Pulse Ox 99% on 2 lpm cln NC; Pain 0/10; 09/30 22:42 Body Mass Index 50.16 (108.86 kg, 147.32 cm) rn1 MDM: 09/30 23:01 [facility] [place] Payment Agreement was scanned into [employer] and attached to record. kf3 23:02 -Blood Culture (Adults Only), peripheral from different site, or from device/port/PICC mm11 etc. if present ordered. 23:02 Call Respiratory ordered. mm11 23:02 Services Engineer/Pulse Ox/q 15 min VS ordered. mm11 23:02 IV Saline Lock ordered. mm11 23:02 Oxygen at 4L/Min NC or Home dosage ordered. mm11 23:02 Rhythm Strip to chart ordered. mm11 23:02 Albuterol-Ipratropium 1 neb Nebulizer every 20 minutes x3 ordered. mm11 23:04 ECG WITH READING ER PHYS+CARDIAG ordered. EDMS 23:04 -Arterial Blood Gas Ordered. EDMS 23:04 B-Type Natiuretic Peptide Ordered. EDMS 23:04 Basic Metabolic Profile Ordered. EDMS 23:04 CBC with Diff Ordered. EDMS 23:04 Cardiac Injury Profile Ordered. EDMS 23:04 Troponin Ordered. EDMS 23:04 -Blood Culture Ordered. EDMS 23:04 Chest, 1 View Ordered. EDMS 23:04 BED REQUEST+ADM ordered. EDMS 23:14 Call Respiratory complete. ml3 23:15 -Blood Culture (Adults Only), peripheral from different site, or from device/port/PICC ml3 etc. if present complete. 23:17 BLOOD CULTURES Ordered. EDMS 23:26 Financial registration complete. kf3 10/01 00:00 -Arterial Blood Gas Reviewed. mm11 00:32 NS 0.9% 500 ml IV at bolus once ordered. mm11 00:35 Lactic Acid (Alfaro tube on ice) Ordered. EDMS 00:37 Norepinephrine (8mg/500mL D5W, 2mcg/min) 4 mcg/min IVPB at calculated rate continuous; mm11 Titrate 2mcg/min q5min to maintain SBP > 90mmHg. Max rate 20 mcg/min ordered. 00:46 ECG WITH READING ER PHYS+CARDIAG ordered. EDMS 01:18 B-Type Natiuretic Peptide Reviewed. mm11 01:18 CBC with Diff Reviewed. mm11 01:41 Basic Metabolic Profile Reviewed. mm11 01:41 Cardiac Injury Profile Reviewed. mm11 01:41 Troponin Reviewed. mm11 01:41 Lactic Acid (Alfaro tube on ice) Reviewed. mm11 01:45 CT Chest Without Contrast Ordered. EDMS 02:01 Repeat EKG (put time details section) ordered. mm11 02:01 Redraw CIP &Troponin (put time in details section) ordered. mm11 02:03 Redraw CIP &Troponin (put time in details section) complete. ml3 02:03 Repeat EKG (put time details section) complete. ml3 02:04 ECG WITH READING ER PHYS ordered. EDMS 02:04 CARDIAC MARKER PANEL Ordered. EDMS 03:19 Acetaminophen Tablet 650 mg PO once ordered. mm11 03:37 CARDIAC MARKER PANEL Reviewed. mm11 03:37 CT Chest Without Contrast Reviewed. mm11 05:03 Admission / Observation Status ordered. EDMS 05:03 TROPONIN Ordered. EDMS 05:03 TROPONIN Ordered. EDMS 05:04 TROPONIN Ordered. EDMS 05:04 CARDIAC INJURY PROFILE Ordered. EDMS 05:04 CARDIAC INJURY PROFILE Ordered. EDMS 05:04 CARDIAC INJURY PROFILE Ordered. EDMS 06:22 MRSA SCREEN Ordered. EDMS 10:48 T-Sheet-- Draft Copy was scanned into [employer] and attached to record. gb 13:58 ECG/EKG was scanned into [employer] and attached to record. gb 13:58 Trend VS was scanned into [employer] and attached to record. gb 13:59 Radiology Report was scanned into [employer] and attached to record. gb Administered Medications: 09/30 23:35 Drug: Albuterol-Ipratropium 1 neb [ipratropium-albuterol 0.5 mg-3 mg(2.5 mg base)/3 mL jh6 nebulization soln (1 neb)] Route: Nebulizer; 23:55 Drug: Albuterol-Ipratropium 1 neb [ipratropium-albuterol 0.5 mg-3 mg(2.5 mg base)/3 mL jh6 nebulization soln (1 neb)] Route: Nebulizer; 10/01 00:16 Drug: Albuterol-Ipratropium 1 neb [ipratropium-albuterol 0.5 mg-3 mg(2.5 mg base)/3 mL jh6 nebulization soln (1 neb)] Route: Nebulizer; 00:48 Drug: NS 0.9% 500 ml [sodium chloride 0.9 % intravenous solution] Route: IV; Rate: nn1 bolus; Site: right antecubital; 00:48 Drug: Norepinephrine (8mg/500mL D5W, 2mcg/min) 4 mcg/min [norepinephrine bitartrate 1 nn1 mg/mL intravenous solution] Route: IVPB; Rate: calculated rate; Site: left antecubital; 00:54 Follow up: Rate change 6 mcg/min nn1 01:00 Follow up: BP 84 / 54 nn1 01:00 Follow up: Rate change 8 mcg/min nn1 01:22 Follow up: BP 87 / 50 nn1 01:23 Follow up: Rate change 10 mcg/min nn1 02:58 Follow up: Rate change 8 mcg/min nn1 03:27 Follow up: BP 103 / 56; Pulse 126 bpm nn1 03:27 Follow up: Rate change 6 mcg/min nn1 03:27 Drug: Acetaminophen 650 mg [acetaminophen 325 mg tablet (2 tabs)] Route: PO; nn1 Signatures: Dispatcher uMentioned EDNC Carmen Harrison, Reg Reg gb Asher Boles, Magistrate Unit ml3 Sd Clifford, DO DO mm11 Donnie Anne, Reg Reg kf3 Rod Waterman,RN RN nn1 Leonidas Sanchez jh6 The chart was reviewed and I authenticate all verbal orders and agree with the evaluation and treatment provided.Attachments: 09/30 23:01 [facility] Payment Agreement kf3 10/01 10:48 T-Sheet-- Draft Copy gb 13:58 ECG/EKG gb Chart Complete MTDD
--- NOTE | 2016-10-03 07:56 | EDDOCDS ---
Physician Documentation [facility] Name: Shyanne Adams Age: 81 yrs Sex: Female : 1935 Arrival Date: 09/30/2016 Time: 22:17 Bed 2 Private MD: Serjio Ivan MD Disposition: 10/01/16 05:28 Hospitalization ordered by Marquita Gaston for Inpatient Admission. Preliminary diagnosis are Acute combined systolic (congestive) and diastolic (congestive) heart failure, Hypoxemia, Hypotension. - Bed requested for ICU. - Status is Inpatient Admission. nn1 - Condition is Stable. - Problem is an acute exacerbation. - Symptoms have improved. Historical: - Allergies: NSAIDS (Stage IV kidney disease); ROSIGLITAZONE DERIVATIVES (Rash); - Home Meds: 1. meclizine 25 mg Oral cap daily 2. allopurinol 100 mg Oral tab 2 tabs once daily 3. aspirin 81 mg Oral tab 1 tab once daily 4. atorvastatin 20 mg oral tab 1 tab once daily 5. deyilant 30 mg daily 6. dorzolamide 2 % ophthalmic drop 7. glipizide 10 mg Oral tab 1 tab 2 times per day 8. Lasix 40 mg Oral tab 1 tab 2 times per day 9. levothyroxine 50 mcg Oral cap 1 cap once daily 10. midodrine 5 mg oral tab 11. Plavix 75 mg Oral tab 1 tab once daily 12. Sensipar 30 mg oral tab bid M and F 13. Travatan Z 0.004 % ophthalmic drop 1 drop nightly - PMHx: Anemia; CHF; Diabetes - NIDDM: controlled; Glaucoma; Gout; Heart Murmur; heart valve problem; Hypertension; Hypothyroidism; Stage IV kidney disease; Vertigo; - PSHx: Cholecystectomy; ; - Social history: Smoking status: Patient states was never smoker of tobacco. No barriers to communication noted, The patient speaks fluent Luxembourgish, Speaks appropriately for age. - Family history: No immediate family members are acutely ill. - : The pt / caregiver states he / she is on anticoagulants: Plavix. Home medication list is obtained from [employer] import data. - Exposure Risk Screening:: None identified. Vital Signs: 09/30 22:42 BP 132 / 75; Pulse 99; Resp 20; Temp 97.5(TE); Pulse Ox 97% on 6 lpm NC; Weight 108.86 rn1 kg / 240 lbs (R); Height 4 ft. 10 in. (147.32 cm); Pain 0/10; 22:50 BP 109 / 58 (auto/); nn1 22:50 Pulse 111 MON; Pulse Ox 100% ; nn1 23:00 BP 126 / 53 (auto/); nn1 23:00 Pulse 113 MON; Pulse Ox 100% ; nn1 23:15 BP 118 / 58 (auto/); nn1 23:15 Pulse 114 MON; Pulse Ox 99% ; nn1 23:30 BP 127 / 56 (auto/); nn1 23:30 Pulse 112 MON; Pulse Ox 99% ; nn1 23:45 BP 108 / 55 (auto/); nn1 23:45 Pulse 111 MON; nn1 10/01 00:00 BP 115 / 73 (auto/); nn1 00:00 Pulse 110 MON; Pulse Ox 99% ; nn1 00:15 BP 102 / 57 (auto/); nn1 00:15 Pulse 114 MON; Pulse Ox 95% ; nn1 00:30 BP 53 / 32 (auto/); nn1 00:30 Pulse 120 MON; Pulse Ox 95% ; nn1 00:32 BP 62 / 34 (auto/); nn1 00:32 Pulse 110 MON; Pulse Ox 97% ; nn1 00:43 BP 51 / 31 (auto/); nn1 00:43 Pulse 98 MON; Pulse Ox 96% ; nn1 00:45 BP 55 / 37 (auto/); nn1 00:45 Pulse 101 MON; Pulse Ox 97% ; nn1 00:51 Resp 18; Pulse Ox 2 lpm NC; nn1 00:51 Pulse 114 MON; Pulse Ox 95% ; nn1 00:51 Resp 18; nn1 00:52 BP 73 / 48 (auto/); nn1 00:58 Pulse 123 MON; Pulse Ox 96% ; nn1 00:59 Pulse 123 MON; Pulse Ox 95% ; nn1 00:59 BP 84 / 54 (auto/); nn1 01:00 BP 85 / 55 (auto/); nn1 01:00 BP 84 / 54; nn1 01:10 BP 99 / 54 (auto/); nn1 01:10 Pulse 127 MON; Pulse Ox 96% ; nn1 01:15 BP 91 / 54 (auto/); nn1 01:15 Pulse 128 MON; Pulse Ox 94% ; nn1 01:21 BP 87 / 50 (auto/); nn1 01:21 Pulse 127 MON; Pulse Ox 94% ; nn1 01:22 BP 87 / 50; nn1 01:30 BP 90 / 50 (auto/); nn1 01:30 Pulse 130 MON; Pulse Ox 95% ; nn1 01:45 BP 88 / 50 (auto/); nn1 01:45 Pulse 131 MON; Pulse Ox 96% ; nn1 02:00 BP 95 / 53 (auto/); nn1 02:00 Pulse 131 MON; Pulse Ox 96% ; nn1 02:15 BP 97 / 56 (auto/); nn1 02:29 Pulse 135 MON; Pulse Ox 96% ; nn1 02:30 BP 92 / 56 (auto/); nn1 02:30 Pulse 135 MON; Pulse Ox 96% ; nn1 02:45 BP 103 / 57 (auto/); nn1 02:45 Pulse 128 MON; Pulse Ox 97% ; nn1 02:58 Resp 18; Temp 97.3(TE); nn1 03:00 BP 83 / 53 (auto/); nn1 03:00 Pulse 130 MON; Pulse Ox 97% ; nn1 03:15 BP 95 / 55 (auto/); nn1 03:15 Pulse 131 MON; Pulse Ox 97% ; nn1 03:25 BP 103 / 56 (auto/); nn1 03:25 Pulse 123 MON; Pulse Ox 98% ; nn1 03:27 BP 103 / 56; Pulse 126; nn1 03:30 BP 103 / 59 (auto/); nn1 03:30 Pulse 124 MON; Pulse Ox 99% ; nn1 03:45 BP 84 / 52 (auto/); nn1 03:45 Pulse 127 MON; Pulse Ox 99% ; nn1 04:00 BP 89 / 50 (auto/); nn1 04:00 Pulse 127 MON; Pulse Ox 98% ; nn1 04:15 BP 100 / 58 (auto/); nn1 04:16 Pulse 124 MON; Pulse Ox 98% ; nn1 04:30 BP 102 / 56 (auto/); nn1 04:30 Pulse 120 MON; Pulse Ox 99% ; nn1 04:45 BP 94 / 51 (auto/); nn1 04:45 Pulse 115 MON; Pulse Ox 98% ; nn1 04:57 Pulse Ox 2 lpm NC; nn1 05:00 BP 98 / 53 (auto/); nn1 05:00 Pulse 116 MON; Pulse Ox 98% ; nn1 05:15 BP 104 / 56 (auto/); nn1 05:15 Pulse 114 MON; Pulse Ox 100% ; nn1 05:38 BP 92 / 53 (auto/); nn1 05:38 Pulse 124 MON; Pulse Ox 94% ; nn1 05:45 BP 120 / 60 (auto/); nn1 05:45 Pulse 118 MON; Pulse Ox 97% ; nn1 06:00 BP 106 / 55 (auto/); nn1 06:00 Pulse 109 MON; Pulse Ox 97% ; nn1 06:15 BP 98 / 57 (auto/); nn1 06:15 Pulse 108 MON; Pulse Ox 99% ; nn1 06:30 BP 95 / 52 (auto/); nn1 06:30 Pulse 107 MON; Pulse Ox 99% ; nn1 06:36 Resp 20; nn1 06:49 BP 107 / 57 RA Supine (auto/reg); Pulse 115 MON; Temp 97.1(TE); Pulse Ox 99% on 2 lpm cln NC; Pain 0/10; 09/30 22:42 Body Mass Index 50.16 (108.86 kg, 147.32 cm) rn1 MDM: 09/30 23:01 [facility] Payment Agreement was scanned into NGI and attached to record. kf3 23:02 -Blood Culture (Adults Only), peripheral from different site, or from device/port/PICC mm11 etc. if present ordered. 23:02 Call Respiratory ordered. mm11 23:02 Intervention Manager/Pulse Ox/q 15 min VS ordered. mm11 23:02 IV Saline Lock ordered. mm11 23:02 Oxygen at 4L/Min NC or Home dosage ordered. mm11 23:02 Rhythm Strip to chart ordered. mm11 23:02 Albuterol-Ipratropium 1 neb Nebulizer every 20 minutes x3 ordered. mm11 23:04 ECG WITH READING ER PHYS+CARDIAG ordered. EDMS 23:04 -Arterial Blood Gas Ordered. EDMS 23:04 B-Type Natiuretic Peptide Ordered. EDMS 23:04 Basic Metabolic Profile Ordered. EDMS 23:04 CBC with Diff Ordered. EDMS 23:04 Cardiac Injury Profile Ordered. EDMS 23:04 Troponin Ordered. EDMS 23:04 -Blood Culture Ordered. EDMS 23:04 Chest, 1 View Ordered. EDMS 23:04 BED REQUEST+ADM ordered. EDMS 23:14 Call Respiratory complete. ml3 23:15 -Blood Culture (Adults Only), peripheral from different site, or from device/port/PICC ml3 etc. if present complete. 23:17 BLOOD CULTURES Ordered. EDMS 23:26 Financial registration complete. kf3 10/01 00:00 -Arterial Blood Gas Reviewed. mm11 00:32 NS 0.9% 500 ml IV at bolus once ordered. mm11 00:35 Lactic Acid (Alfaro tube on ice) Ordered. EDMS 00:37 Norepinephrine (8mg/500mL D5W, 2mcg/min) 4 mcg/min IVPB at calculated rate continuous; mm11 Titrate 2mcg/min q5min to maintain SBP > 90mmHg. Max rate 20 mcg/min ordered. 00:46 ECG WITH READING ER PHYS+CARDIAG ordered. EDMS 01:18 B-Type Natiuretic Peptide Reviewed. mm11 01:18 CBC with Diff Reviewed. mm11 01:41 Basic Metabolic Profile Reviewed. mm11 01:41 Cardiac Injury Profile Reviewed. mm11 01:41 Troponin Reviewed. mm11 01:41 Lactic Acid (Alfaro tube on ice) Reviewed. mm11 01:45 CT Chest Without Contrast Ordered. EDMS 02:01 Repeat EKG (put time details section) ordered. mm11 02:01 Redraw CIP &Troponin (put time in details section) ordered. mm11 02:03 Redraw CIP &Troponin (put time in details section) complete. ml3 02:03 Repeat EKG (put time details section) complete. ml3 02:04 ECG WITH READING ER PHYS ordered. EDMS 02:04 CARDIAC MARKER PANEL Ordered. EDMS 03:19 Acetaminophen Tablet 650 mg PO once ordered. mm11 03:37 CARDIAC MARKER PANEL Reviewed. mm11 03:37 CT Chest Without Contrast Reviewed. mm11 05:03 Admission / Observation Status ordered. EDMS 05:03 TROPONIN Ordered. EDMS 05:03 TROPONIN Ordered. EDMS 05:04 TROPONIN Ordered. EDMS 05:04 CARDIAC INJURY PROFILE Ordered. EDMS 05:04 CARDIAC INJURY PROFILE Ordered. EDMS 05:04 CARDIAC INJURY PROFILE Ordered. EDMS 06:22 MRSA SCREEN Ordered. EDMS 10:48 T-Sheet-- Draft Copy was scanned into NGI and attached to record. gb 13:58 ECG/EKG was scanned into [employer] and attached to record. gb 13:58 Trend VS was scanned into [employer] and attached to record. gb 13:59 Radiology Report was scanned into [employer] and attached to record. gb Administered Medications: 09/30 23:35 Drug: Albuterol-Ipratropium 1 neb [ipratropium-albuterol 0.5 mg-3 mg(2.5 mg base)/3 mL jh6 nebulization soln (1 neb)] Route: Nebulizer; 23:55 Drug: Albuterol-Ipratropium 1 neb [ipratropium-albuterol 0.5 mg-3 mg(2.5 mg base)/3 mL jh6 nebulization soln (1 neb)] Route: Nebulizer; 10/01 00:16 Drug: Albuterol-Ipratropium 1 neb [ipratropium-albuterol 0.5 mg-3 mg(2.5 mg base)/3 mL jh6 nebulization soln (1 neb)] Route: Nebulizer; 00:48 Drug: NS 0.9% 500 ml [sodium chloride 0.9 % intravenous solution] Route: IV; Rate: nn1 bolus; Site: right antecubital; 00:48 Drug: Norepinephrine (8mg/500mL D5W, 2mcg/min) 4 mcg/min [norepinephrine bitartrate 1 nn1 mg/mL intravenous solution] Route: IVPB; Rate: calculated rate; Site: left antecubital; 00:54 Follow up: Rate change 6 mcg/min nn1 01:00 Follow up: BP 84 / 54 nn1 01:00 Follow up: Rate change 8 mcg/min nn1 01:22 Follow up: BP 87 / 50 nn1 01:23 Follow up: Rate change 10 mcg/min nn1 02:58 Follow up: Rate change 8 mcg/min nn1 03:27 Follow up: BP 103 / 56; Pulse 126 bpm nn1 03:27 Follow up: Rate change 6 mcg/min nn1 03:27 Drug: Acetaminophen 650 mg [acetaminophen 325 mg tablet (2 tabs)] Route: PO; nn1 Signatures: Dispatcher [email or web address] Carmen Harrison, Reg Reg gb Asher Boles, Nursing Executive Unit ml3 Sd Clifford, DO DO mm11 Donnie Anne, Reg Reg kf3 Rod Waterman,RN RN nn1 Leonidas Sanchez jh6 The chart was reviewed and I authenticate all verbal orders and agree with the evaluation and treatment provided.Attachments: 09/30 23:01 [facility] Payment Agreement kf3 10/01 10:48 T-Sheet-- Draft Copy gb 13:58 ECG/EKG gb Chart Complete MTDD
--- NOTE | 2016-10-03 07:56 | EDDOCDS ---
Nurse's Notes [facility] Name: Shyanne Adams Age: 81 yrs Sex: Female : 1935 Arrival Date: 09/30/2016 Time: 22:17 Bed 2 Private MD: Serjio Ivan MD Diagnosis: Acute combined systolic (congestive) and diastolic (congestive) heart failure;Hypoxemia;Hypotension Presentation: 09/30 22:21 Presenting complaint: EMS states: patient lives at home, daughter arrived and patient nn1 was barely conscious. Patient has hx of COPD, room air saturation 70%. Patient given nitro en route, nitro improved symptoms. Patient received 10mg of lasix en route, BP low. Transition of care: patient was not received from another setting of care. 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 Care prior to nn1 arrival: Medications administered prior to arrival: 1 nitro, 10mg lasix. 22:41 Suicide/Homicide risk assessment- the patient denies having any suicidal and/or nn1 homicidal ideations and does not present with any other emotional, behavioral or mental health complaints. 23:55 Adult Sepsis Screening: The patient does not have new or worsening altered mentation. nn1 Patient's respiratory rate is less than 22. Systolic blood pressure is greater than 100. Patient has a qSOFA score of 0- Negative Sepsis Screen. Triage Assessment: 22:44 General: Appears in no apparent distress, Behavior is fussy. Pain: Denies pain. The nn1 patient is triaged at the bedside. See Assessment in Nurses Notes section of ED record. Neurological: Level of Consciousness is awake, alert, obeys commands, Oriented to person, place, time, Moves all extremities. Cardiovascular: Capillary refill < 3 seconds. Cardiovascular: Edema is 4+ to left midcalf, left ankle, left foot, left toes, right midcalf, right ankle, right foot and right toes Chest pain is denied. Respiratory: Onset: The symptoms/episode began/occurred today, Airway is patent Respiratory effort is even, Respiratory pattern is regular, Breath sounds are coarse expiratory. GI: Abdomen is obese. Derm: Skin breakdown noted throughout body. Cellulitis noted in bilateral lower extremities, scabs throughout. Skin is dry, flaking. Rash noted on upper back. Injury Description: No known injury. Historical: - Allergies: NSAIDS (Stage IV kidney disease); ROSIGLITAZONE DERIVATIVES (Rash); - Home Meds: 1. meclizine 25 mg Oral cap daily 2. allopurinol 100 mg Oral tab 2 tabs once daily 3. aspirin 81 mg Oral tab 1 tab once daily 4. atorvastatin 20 mg oral tab 1 tab once daily 5. deyilant 30 mg daily 6. dorzolamide 2 % ophthalmic drop 7. glipizide 10 mg Oral tab 1 tab 2 times per day 8. Lasix 40 mg Oral tab 1 tab 2 times per day 9. levothyroxine 50 mcg Oral cap 1 cap once daily 10. midodrine 5 mg oral tab 11. Plavix 75 mg Oral tab 1 tab once daily 12. Sensipar 30 mg oral tab bid M and F 13. Travatan Z 0.004 % ophthalmic drop 1 drop nightly - PMHx: Anemia; CHF; Diabetes - NIDDM: controlled; Glaucoma; Gout; Heart Murmur; heart valve problem; Hypertension; Hypothyroidism; Stage IV kidney disease; Vertigo; - PSHx: Cholecystectomy; ; - Social history: Smoking status: Patient states was never smoker of tobacco. No barriers to communication noted, The patient speaks fluent Hong Konger, Speaks appropriately for age. - Family history: No immediate family members are acutely ill. - : The pt / caregiver states he / she is on anticoagulants: Plavix. Home medication list is obtained from [employer] import data. - Exposure Risk Screening:: None identified. Screenin:48 Screening information is obtained from the patient. Fall risk: At risk due to gait nn1 disturbance. Assistance ADL's: Requires assistance with meal preparation, this assistance is provided by Home Health Aides, bathing, assistance is provided by Home Health Aides, dressing, assistance is provided by Home Health Aides, toileting, assistance is provided by Home Health Aides, ambulation, assistance is provided by Home Health Aides, housework, assistance is provided by Home Health Aides, medication administration, assistance is provided by Public Health nurses. Abuse/DV Screen: The patient / caregiver reports he/she is: not in a situation that causes fear, pain or injury. Nutritional screening: No deficits noted. Advance Directives: Currently, there is a health care proxy, Haydee Mckay, daughter . There is an active DNR order but there is no copy available at this time. home support is adequate. Assessment: 22:49 General: See triage assessment . Cardiovascular: Capillary refill < 3 seconds Heart nn1 tones S1 S2 present Rhythm is sinus tachycardia Chest pain is denied. 23:55 General: Patient is comfortable, reports headache at this time. Has family at bedside. nn1 . Respiratory: Airway is patent Respiratory effort is even, Respiratory pattern is regular. 10/01 00:24 General: Patient requested lights to be shut off so she can sleep. patient received nn1 breathing treatments. . Respiratory: Breath sounds are coarse expiratory. 00:49 General: Patients blood pressure dropped, patient reporting dizziness and that she does nn1 not feel right. Patient medicated per order, patient placed in Trendelenburg. Will continue to monitor patient . Neurological: Level of Consciousness is awake, alert. Respiratory: Airway is patent Respiratory effort is even, Respiratory pattern is regular. Derm: Skin is pink, warm & dry. 02:02 General: Appears in no apparent distress, to be sleeping. Behavior is quiet, Patient nn1 has calmed down, continuing to monitor blood pressure at this time. . Respiratory: Airway is patent Respiratory effort is even, Respiratory pattern is regular, symmetrical. Derm: Skin is pink, warm & dry. 03:00 General: Appears in no apparent distress, to be sleeping. Behavior is quiet. nn1 04:05 Reassessment: Patient appears in no apparent distress at this time. Respiratory: Airway nn1 is patent Respiratory effort is even, unlabored, Respiratory pattern is regular, symmetrical. 04:49 General: Appears in no apparent distress, comfortable, to be sleeping. Behavior is nn1 quiet. Respiratory: Airway is patent Respiratory effort is even, unlabored, Respiratory pattern is regular, symmetrical. Derm: Skin is pink, warm & dry. 05:30 General: Dr. Awad assessed patient, no central line placement at this time. Patient nn1 had bowel movement, patient changed, clean linens placed on bed. Patient now resting. Spoke with ED provider, levophed remaining at 6mcg/min at this time. . 05:47 General: Attempt to call report made, ICU refusing to take patient due to lack of nn1 central line, charge nurse notified. . 06:50 General: Appears in no apparent distress, to be sleeping. Behavior is quiet. nn1 Respiratory: Airway is patent Respiratory effort is even, unlabored, Respiratory pattern is regular, symmetrical. Derm: Skin is pink, warm & dry. Vital Signs: 09/30 22:42 BP 132 / 75; Pulse 99; Resp 20; Temp 97.5(TE); Pulse Ox 97% on 6 lpm NC; Weight 108.86 rn1 kg (R); Height 4 ft. 10 in. (147.32 cm); Pain 0/10; 22:50 BP 109 / 58 (auto/); nn1 22:50 Pulse 111 MON; Pulse Ox 100% ; nn1 23:00 BP 126 / 53 (auto/); nn1 23:00 Pulse 113 MON; Pulse Ox 100% ; nn1 23:15 BP 118 / 58 (auto/); nn1 23:15 Pulse 114 MON; Pulse Ox 99% ; nn1 23:30 BP 127 / 56 (auto/); nn1 23:30 Pulse 112 MON; Pulse Ox 99% ; nn1 23:45 BP 108 / 55 (auto/); nn1 23:45 Pulse 111 MON; nn1 10/01 00:00 BP 115 / 73 (auto/); nn1 00:00 Pulse 110 MON; Pulse Ox 99% ; nn1 00:15 BP 102 / 57 (auto/); nn1 00:15 Pulse 114 MON; Pulse Ox 95% ; nn1 00:30 BP 53 / 32 (auto/); nn1 00:30 Pulse 120 MON; Pulse Ox 95% ; nn1 00:32 BP 62 / 34 (auto/); nn1 00:32 Pulse 110 MON; Pulse Ox 97% ; nn1 00:43 BP 51 / 31 (auto/); nn1 00:43 Pulse 98 MON; Pulse Ox 96% ; nn1 00:45 BP 55 / 37 (auto/); nn1 00:45 Pulse 101 MON; Pulse Ox 97% ; nn1 00:51 Resp 18; Pulse Ox 2 lpm NC; nn1 00:51 Pulse 114 MON; Pulse Ox 95% ; nn1 00:51 Resp 18; nn1 00:52 BP 73 / 48 (auto/); nn1 00:58 Pulse 123 MON; Pulse Ox 96% ; nn1 00:59 Pulse 123 MON; Pulse Ox 95% ; nn1 00:59 BP 84 / 54 (auto/); nn1 01:00 BP 85 / 55 (auto/); nn1 01:00 BP 84 / 54; nn1 01:10 BP 99 / 54 (auto/); nn1 01:10 Pulse 127 MON; Pulse Ox 96% ; nn1 01:15 BP 91 / 54 (auto/); nn1 01:15 Pulse 128 MON; Pulse Ox 94% ; nn1 01:21 BP 87 / 50 (auto/); nn1 01:21 Pulse 127 MON; Pulse Ox 94% ; nn1 01:22 BP 87 / 50; nn1 01:30 BP 90 / 50 (auto/); nn1 01:30 Pulse 130 MON; Pulse Ox 95% ; nn1 01:45 BP 88 / 50 (auto/); nn1 01:45 Pulse 131 MON; Pulse Ox 96% ; nn1 02:00 BP 95 / 53 (auto/); nn1 02:00 Pulse 131 MON; Pulse Ox 96% ; nn1 02:15 BP 97 / 56 (auto/); nn1 02:29 Pulse 135 MON; Pulse Ox 96% ; nn1 02:30 BP 92 / 56 (auto/); nn1 02:30 Pulse 135 MON; Pulse Ox 96% ; nn1 02:45 BP 103 / 57 (auto/); nn1 02:45 Pulse 128 MON; Pulse Ox 97% ; nn1 02:58 Resp 18; Temp 97.3(TE); nn1 03:00 BP 83 / 53 (auto/); nn1 03:00 Pulse 130 MON; Pulse Ox 97% ; nn1 03:15 BP 95 / 55 (auto/); nn1 03:15 Pulse 131 MON; Pulse Ox 97% ; nn1 03:25 BP 103 / 56 (auto/); nn1 03:25 Pulse 123 MON; Pulse Ox 98% ; nn1 03:27 BP 103 / 56; Pulse 126; nn1 03:30 BP 103 / 59 (auto/); nn1 03:30 Pulse 124 MON; Pulse Ox 99% ; nn1 03:45 BP 84 / 52 (auto/); nn1 03:45 Pulse 127 MON; Pulse Ox 99% ; nn1 04:00 BP 89 / 50 (auto/); nn1 04:00 Pulse 127 MON; Pulse Ox 98% ; nn1 04:15 BP 100 / 58 (auto/); nn1 04:16 Pulse 124 MON; Pulse Ox 98% ; nn1 04:30 BP 102 / 56 (auto/); nn1 04:30 Pulse 120 MON; Pulse Ox 99% ; nn1 04:45 BP 94 / 51 (auto/); nn1 04:45 Pulse 115 MON; Pulse Ox 98% ; nn1 04:57 Pulse Ox 2 lpm NC; nn1 05:00 BP 98 / 53 (auto/); nn1 05:00 Pulse 116 MON; Pulse Ox 98% ; nn1 05:15 BP 104 / 56 (auto/); nn1 05:15 Pulse 114 MON; Pulse Ox 100% ; nn1 05:38 BP 92 / 53 (auto/); nn1 05:38 Pulse 124 MON; Pulse Ox 94% ; nn1 05:45 BP 120 / 60 (auto/); nn1 05:45 Pulse 118 MON; Pulse Ox 97% ; nn1 06:00 BP 106 / 55 (auto/); nn1 06:00 Pulse 109 MON; Pulse Ox 97% ; nn1 06:15 BP 98 / 57 (auto/); nn1 06:15 Pulse 108 MON; Pulse Ox 99% ; nn1 06:30 BP 95 / 52 (auto/); nn1 06:30 Pulse 107 MON; Pulse Ox 99% ; nn1 06:36 Resp 20; nn1 06:49 BP 107 / 57 RA Supine (auto/reg); Pulse 115 MON; Temp 97.1(TE); Pulse Ox 99% on 2 lpm cln NC; Pain 0/10; 09/30 22:42 Body Mass Index 50.16 (108.86 kg, 147.32 cm) rn1 Vitals: 06:49 Log In Time N/A - ambulance arrival. nn1 ED Course: 09/30 22:18 Patient visited by Asher Boles Pool Attendant. ml3 22:18 Serjio Ivan is Private Physician. ml3 22:18 Patient moved to Waiting ml3 22:19 Patient moved to 2 ml3 22:22 Triage Initiated nn1 22:29 Sd Clifford DO is Attending Physician. mm11 22:29 Patient visited by Sd Clifford DO. mm11 23:01 Patient visited by Sd Clifford DO. mm11 23:01 [facility] Payment Agreement was scanned into [employer] and attached to record. kf3 23:26 Patient visited by Robyn Weiner PCA. cln 23:26 EKG done. (by ED staff). Reviewed by Sd Clifford DO. cln 23:35 -Arterial Blood Gas Sent. jh6 23:56 Patient visited by Rod Waterman RN. nn1 10/01 00:23 Maintain field IV. Gauge & site: 20G RAC . IV is patent. O2 via nasal cannula \T\ 2L/min. nn1 00:37 Patient visited by Sd Clifford DO. mm11 00:50 Inserted saline lock: 18 gauge in left antecubital area and blood collected. The nn1 patient tolerated the procedure well. 01:09 Patient visited by Sd Clifford DO. mm11 01:19 BLOOD CULTURES Sent. nn1 01:41 Patient visited by Sd Clifford DO. mm11 02:20 Patient visited by Sd Clifford DO. mm11 02:53 EKG done. (by ED staff). Reviewed by Sd Clifford DO. cln 02:58 Patient visited by Rod Waterman RN. nn1 03:37 CT Chest Without Contrast Returned. EDMS 03:49 Patient visited by Robyn Weiner PCA. cln 04:49 Patient visited by Rod Waterman RN. nn1 05:28 Marquita Gaston is Hospitalizing Provider. mm11 06:41 Patient visited by Rod Waterman RN. nn1 06:49 The patient / caregiver is instructed regarding the plan of care and ED course. nn1 06:49 No procedures done that require assistance. nn1 06:50 Patient visited by Bety White. dem1 06:50 Patient visited by Robyn Weiner PCA. cln 06:50 Assisted with bedpan. dem1 10:48 T-Sheet-- Draft Copy was scanned into [employer] and attached to record. gb 13:58 ECG/EKG was scanned into [employer] and attached to record. gb 13:58 Trend VS was scanned into [employer] and attached to record. gb 13:59 Radiology Report was scanned into [employer] and attached to record. gb Administered Medications: 09/30 23:35 Drug: Albuterol-Ipratropium 1 neb [ipratropium-albuterol 0.5 mg-3 mg(2.5 mg base)/3 mL jh6 nebulization soln (1 neb)] Route: Nebulizer; 23:55 Drug: Albuterol-Ipratropium 1 neb [ipratropium-albuterol 0.5 mg-3 mg(2.5 mg base)/3 mL jh6 nebulization soln (1 neb)] Route: Nebulizer; 10/01 00:16 Drug: Albuterol-Ipratropium 1 neb [ipratropium-albuterol 0.5 mg-3 mg(2.5 mg base)/3 mL jh6 nebulization soln (1 neb)] Route: Nebulizer; 00:48 Drug: NS 0.9% 500 ml [sodium chloride 0.9 % intravenous solution] Route: IV; Rate: nn1 bolus; Site: right antecubital; 00:48 Drug: Norepinephrine (8mg/500mL D5W, 2mcg/min) 4 mcg/min [norepinephrine bitartrate 1 nn1 mg/mL intravenous solution] Route: IVPB; Rate: calculated rate; Site: left antecubital; 00:54 Follow up: Rate change 6 mcg/min nn1 01:00 Follow up: BP 84 / 54 nn1 01:00 Follow up: Rate change 8 mcg/min nn1 01:22 Follow up: BP 87 / 50 nn1 01:23 Follow up: Rate change 10 mcg/min nn1 02:58 Follow up: Rate change 8 mcg/min nn1 03:27 Follow up: BP 103 / 56; Pulse 126 bpm nn1 03:27 Follow up: Rate change 6 mcg/min nn1 03:27 Drug: Acetaminophen 650 mg [acetaminophen 325 mg tablet (2 tabs)] Route: PO; nn1 Attachments: 13:58 Trend VS gb RT: 09/30 22:22 O2 via nasal cannula \T\ 6L/min. Respiratory: Airway is patent Respiratory effort is jh6 even, labored, Respiratory pattern is tachypnea Breath sounds are coarse in right upper lobe, left upper lobe, right middle lobe, left lower lobe and right lower lobe. 23:35 ABG's drawn from left radial artery pressure held for 5 minutes no bleeding noted jh6 pressure bandage applied specimen sent pt. tolerated well. 23:39 Initial Med Neb Given as ordered Patient was instructed and evaluated on procedure jh6 Patient tolerated procedure well without adverse effect. Respiratory: Airway is patent Respiratory effort is even, unlabored, Respiratory pattern is regular symmetrical, Breath sounds are coarse in right upper lobe, left upper lobe, right middle lobe, left lower lobe and right lower lobe. 23:45 Respiratory: Breath sounds are coarse in right upper lobe, left upper lobe, right jh6 middle lobe, left lower lobe and right lower lobe. 23:57 Subsequent Med Neb Given as ordered Patient was reinforced on procedure Patient jh6 tolerated procedure well without adverse effect. Respiratory: Airway is patent Respiratory effort is even, unlabored, Respiratory pattern is regular symmetrical, Breath sounds with crackles in right upper lobe, left upper lobe, right middle lobe, left lower lobe and right lower lobe. 10/01 00:17 Subsequent Med Neb Given as ordered Patient was reinforced on procedure Patient jh6 tolerated procedure well without adverse effect. Respiratory: Airway is patent Respiratory effort is even, unlabored, Respiratory pattern is regular symmetrical, Breath sounds are coarse in right upper lobe, left upper lobe, right middle lobe, left lower lobe and right lower lobe Breath sounds with crackles in right upper lobe, left upper lobe, right middle lobe, left lower lobe and right lower lobe. Order Results: Lab Order: -Arterial Blood Gas; SPEC'M 09/30/16 23:28 Test: ABG pH (ARTERIAL); Value: 7.356; Range: 7.350-7.450; Units: UNITS; Status: F Test: ABG PARTIAL PRESSURE CO2; Value: 41.9; Range: 35.0-45.0; Units: mmHg; Status: F Test: ABG PARTIAL PRESSURE O2; Value: 78.2; Range: 75.0-100.0; Units: mmHg; Status: F Test: ABG TOTAL CO2; Value: 24.2; Range: 23.0-31.0; Units: MEQ/L; Status: F Test: ABG HCO3; Value: 22.9; Range: 22.0-26.0; Units: MEQ/L; Status: F Test: ABG BASE EXCESS; Value: -2.5; Range: -2.0-2.0; Abnormal: Below low normal; Status: F Test: ABG STANDARD HCO3; Value: 22.4; Range: 22.0-26.0; Units: MEQ/L; Status: F Test: ABG O2 SATURATION; Value: 95.3; Range: 95.0-99.0; Units: %; Status: F Test: ABG DEVICE; Value: NASAL JORGE L; Status: F Lab Order: B-Type Natiuretic Peptide; SPEC' 10/01/16 00:38 Test: BRAIN NATRIURETIC PEPTIDE; Value: 279; Range: <100; Abnormal: Above high normal; Units: PG/ML; Status: F Lab Order: Basic Metabolic Profile; SPEC'M 10/01/16 00:38 Test: GLUCOSE, FASTING; Value: 219; Range: 83-110; Abnormal: Above high normal; Units: MG/DL; Status: F Test: BLOOD UREA NITROGEN; Value: 66; Range: 7-18; Abnormal: Above high normal; Units: MG/DL; Status: F Test: CREATININE FOR GFR; Value: 2.56; Range: 0.55-1.02; Abnormal: Above high normal; Units: MG/DL; Status: F Test: GLOMERULAR FILTRATION RATE; Value: 19.2; Range: >32; Abnormal: Below low normal; Status: F Test: SODIUM LEVEL; Value: 142; Range: 136-145; Units: MEQ/L; Status: F Test: POTASSIUM SERUM; Value: 5.1; Range: 3.5-5.1; Units: MEQ/L; Status: F Test: CHLORIDE LEVEL; Value: 108; Range: 98-107; Abnormal: Above high normal; Units: MEQ/L; Status: F Test: CARBON DIOXIDE LEVEL; Value: 25; Range: 21-32; Units: MEQ/L; Status: F Test: ANION GAP; Value: 9; Range: 8-16; Units: MEQ/L; Status: F Test: CALCIUM LEVEL; Value: 8.3; Range: 8.8-10.2; Abnormal: Below low normal; Units: MG/DL; Status: F Test Note: ; Units are mL/min/1.73 m2 Chronic Kidney Disease Staging per NKF: Stage I & II GFR >=60 Normal to Mildly Decreased Stage III GFR 30-59 Moderately Decreased Stage IV GFR 15-29 Severely Decreased Stage V GFR <15 Very Little GFR Left ESRD GFR <15 on ACCOUNT SUPPORT REP Lab Order: CBC with Diff; SPEC'M 10/01/16 00:38 Test: WHITE BLOOD COUNT; Value: 10.4; Range: 4.0-10.0; Abnormal: Above high normal; Units: K/mm3; Status: F Test: RED BLOOD COUNT; Value: 3.49; Range: 4.00-5.40; Abnormal: Below low normal; Units: M/mm3; Status: F Test: HEMOGLOBIN; Value: 9.7; Range: 12.0-16.0; Abnormal: Below low normal; Units: g/dl; Status: F Test: HEMATOCRIT; Value: 31.7; Range: 36.0-47.0; Abnormal: Below low normal; Units: %; Status: F Test: MEAN CORPUSCULAR VOLUME; Value: 90.7; Range: 80.0-96.0; Units: fl; Status: F Test: MEAN CORPUSCULAR HEMOGLOBIN; Value: 27.7; Range: 27.0-33.0; Units: pg; Status: F Test: MEAN CORPUSCULAR HGB CONC; Value: 30.5; Range: 32.0-36.5; Abnormal: Below low normal; Units: g/dl; Status: F Test: RED CELL DISTRIBUTION WIDTH; Value: 16.4; Range: 11.5-14.5; Abnormal: Above high normal; Units: %; Status: F Test: PLATELET COUNT, AUTOMATED; Value: 206; Range: 150-450; Units: k/mm3; Status: F Test: NEUTROPHILS %; Value: 73.1; Range: 36.0-66.0; Abnormal: Above high normal; Units: %; Status: F Test: LYMPH %; Value: 16.9; Range: 24.0-44.0; Abnormal: Below low normal; Units: %; Status: F Test: MONO %; Value: 4.6; Range: 0.0-5.0; Units: %; Status: F Test: EOS %; Value: 2.6; Range: 0.0-3.0; Units: %; Status: F Test: BASO %; Value: 1.7; Range: 0.0-1.0; Abnormal: Above high normal; Units: %; Status: F Test: LARGE UNSTAINED CELL %; Value: 1.2; Range: 0.0-4.0; Units: %; Status: F Test: NEUTROPHILS #; Value: 7.6; Range: 1.8-7.7; Units: K/mm3; Status: F Test: LYMPH #; Value: 1.9; Range: 1.5-4.5; Units: K/mm3; Status: F Test: MONO #; Value: 0.5; Range: 0.0-0.8; Units: K/mm3; Status: F Test: EOS #; Value: 0.3; Range: 0.0-0.50; Units: K/mm3; Status: F Test: BASO #; Value: 0.2; Range: 0.0-0.2; Units: K/mm3; Status: F Test: LARGE UNSTAINED CELL #; Value: 0.1; Range: 0.0-0.4; Units: K/mm3; Status: F Lab Order: Cardiac Injury Profile; [facility]' 10/01/16 00:38 Test: CPK CREATINE PHOSPHOKINASE; Value: 54; Range: 26-192; Units: U/L; Status: F Test: CK-MB VALUE MASS; Value: 3.1; Range: 0.0-3.6; Units: NG/ML; Status: F Test: MB/CK RELATIVE INDEX; Value: 5.74; Range: < OR =4; Abnormal: Above high normal; Status: F Test Note: ; DIAGNOSIS CRITERIA MMB ng/ml Relative Index (RI) NON-AMI < or = 5 N/A ALFARO ZONE > 5 < or = 4 AMI > 5 > 4 Lab Order: Troponin; [facility]' 10/01/16 00:38 Test: TROPONIN I; Value: 0.28; Range: < 0.10; Abnormal: Above high normal; Units: NG/ML; Status: F Test Note: ; Troponin I Reference Interval for [place] LOCI: 99th Percentile= 0.00-0.045 ng/ml Risk Stratification: <= 0.10 ng/ml Decreased Risk for Adverse Clinical Events. 0.10-1.50 ng/ml Increased Risk for Adverse Clinical Events. Evaluation of additional criterion and/or repeat testing in 2-6 hours is suggested to rule out myocardial damage. >= 1.50 ng/ml Indicative of Myocardial Injury. Lab Order: Lactic Acid (Alfaro tube on ice); SPEC'M 10/01/16 00:38 Test: LACTIC ACID LEVEL, LACTATE; Value: 1.9; Range: 0.4-2.0; Units: MMOL/L; Status: F Lab Order: CARDIAC MARKER PANEL; SPEC'M 10/01/16 02:56 Test: CPK CREATINE PHOSPHOKINASE; Value: 90; Range: 26-192; Units: U/L; Status: F Test: CK-MB VALUE MASS; Value: 5.3; Range: 0.0-3.6; Abnormal: Above high normal; Units: NG/ML; Status: F Test: MB/CK RELATIVE INDEX; Value: 5.88; Range: < OR =4; Abnormal: Above high normal; Status: F Test: TROPONIN I; Value: 0.41; Range: < 0.10; Abnormal: High; Units: NG/ML; Status: F Test Note: ; DIAGNOSIS CRITERIA MMB ng/ml Relative Index (RI) NON-AMI < or = 5 N/A ALFARO ZONE > 5 < or = 4 AMI > 5 > 4 Radiology Order: CT Chest Without Contrast Test: CT Chest Without Contrast REASON FOR EXAMINATION: Cough; ; CLINICAL HISTORY: Cough.; TECHNIQUE: Multiple axial CT images were obtained through chest without IV contrast material. MPR cor; onal and sagittal sequences were obtained.; COMMENTS:; There is no evidence of pleural or parenchymal mass. There are small bilateral pleural effusions. The; re is no evidence of hilar or mediastinal lymphadenopathy. The heart is moderately enlarged great ves; sels are engorged. Interstitial pulmonary edema. Alveolar pulmonary edema.; The visualized portions of the liver are of uniform attenuation without mass or defect. There is no i; ntra or extrahepatic biliary ductal dilatation. The spleen is unremarkable. The visualized pancreas i; s of normal contour and attenuation characteristics. There is no evidence of adrenal mass. The visual; ized portions of the kidneys present no abnormalities.; The bony structures are free of lytic or blastic lesions. Multilevel degenerative changes are seen in; volving the thoracic spine. Scattered calcifications are seen involving the aorta and visualized roxann; r branches compatible with atherosclerosis. Mild increase in dorsal kyphosis.; Prior cholecystectomy.; IMPRESSION:; Congestive heart failure.; Small pleural effusions.; Interstitial pulmonary edema.; Alveolar pulmonary edema.; Thank you for your kind referral of this patient.; ; ; Outcome: 05:28 Decision to Hospitalize by Provider. mm11 06:48 Discharge Assessment: Patient awake, alert and oriented x 3. No cognitive and/or nn1 functional deficits noted. Patient verbalized understanding of disposition instructions. patient administered narcotics - no. The following High Risk Discharge criteria are identified: None. Admitted to ICU accompanied by nurse, accompanied by tech, via stretcher, with oxygen, on monitor, with chart. critical. CT Study completed. Admission hand-off: Report called to BETTY Aguillon. Property :Personal belongings accompany Pt. 06:55 Patient left the ED. nn1 Signatures: Dispatcher [employer] EDMS Carmen Harrison, Reg Reg gb Ramana, MaryluWillKatelyn, Pool Attendant Unit ml3 Sd Clifford, DO mm11 Donnie Anne, Reg Reg kf3 Leonidas Sanchez jh6 Bety White dem1 Martínez Stanford rn1 Rod Waterman RN RN nn1 Robyn Weiner, BRANDT E[employer] FRAMES INSPECTOR cln Corrections: (The following items were deleted from the chart) 05:49 05:30 General: Dr. Awad assessed patient, no central line placement at this time. nn1 Patient had bowel movement, patient changed, clean linens placed on bed. Patient now resting. . nn1 Chart Complete MTDD
--- NOTE | 2016-10-03 08:18 | REP ---
DOUBLE LUMEN PICC LINE INSERTION: The patient was referred for double lumen PICC line insertion. Informed consent was obtained. Under sterile conditions and after satisfactory administration of local anesthesia, access to the right basilic vein is obtained using the ahoyDoce ultrasound device. The procedure was performed at the bedside in the intensive care unit. Catheter length was estimated. The catheter was inserted into the basilic vein and the tip was positioned in the superior vena cava. A post procedure chest radiograph demonstrates the tip appropriately positioned in the superior vena cava. Hemostasis was obtained. There were no immediate complications. Signed by Zion Alfaro MD 10/02/2016 04:13 P
[2016-10-03] MEDS: CLOPIDOGREL 75 MG TAB PO SCH (09:15)
[2016-10-03] MEDS: ALLOPURINOL 100 MG TAB PO SCH ×2 (09:15→20:07)
[2016-10-03] MEDS: MULTIVITAMINS/MINERALS THERAP 1 TAB PO SCH ×2 (09:15→20:07)
[2016-10-03] MEDS: FUROSEMIDE 100 MG/10 ML VIAL (J1940) IV SCH ×2 (09:15→16:16)
[2016-10-03] MEDS: ASPIRIN 81 MG ENTERIC TAB PO SCH (09:15)
[2016-10-03] MEDS: NYSTATIN 100,000 UNITS/GM TOPICAL PWD 15 GM TOP SCH ×2 (09:16→20:07)
--- NOTE | 2016-10-03 11:05 | IPNPDOC ---
Assessment/Plan Date Seen The patient was seen on 10/03/16. Problems Problems: (1) Hypotension Status: Acute Problem Text: Patient has h/o htn, however has been hypotensive requiring norepi drip in ICU. Pressures currently stable on 1.9 mcg. Will continue drip at this time and leave management to cardiology. Midodrine 10 mg 3 times a day was started yesterday. Patient is not dizzy or lightheaded, but is fatigued. I discussed her severe anemia in conjunction with her cardiac disease. Given her recent NSTEMI, I recommended that we give her a blood transfusion. Patient wishes to talk to her family. -Consider PRBC for hemoglobin of 8.3 in patient with known coronary artery disease and current symptoms of anemia -Nor epi drip per cardiology (2) CHF (congestive heart failure) Permanent Comment: ECHO 04/22/2016: Moderate calcific aortic stenosis with mild insufficiency. Severe mitral annular calcification without inflow tract obstruction but mild - moderate insufficiency. Could not rule out a small sessile vegetation but no pedunculated mass was observed. Borderline concentric left ventricle hypertrophy with normal wall motion. Mildly dilated left atrium with Doppler sign of a degree of impaired LV diastolic function and possibly elevated mean left atrial pressure. Normal right heart chamber sizes with Doppler evidence of moderate pulmonary hypertension. Mildly dilated IVC with slightly reduced respiratory collapse suggestive an elevated central venous pressure. Comparing today's study with that of February 10, 2015, there did not appear to be dramatic change. Last Edited By: Mell Banda NP on Apr 22, 2016 10:07 Status: Chronic Problem Text: Acute ischemic heart failure. Recommended transfusion of packed red blood cells to improve cardiac function. Patient did not want to receive any transfusions without discussing with her family first. -Consider PRBC transfusion pending family discussion; despite volume overload, I believe this would improve cardiac function -Continue pressors per cardiology management (3) CKD (chronic kidney disease) Status: Chronic Problem Text: Patient is near her baseline creatinine. (4) HTN (hypertension) Status: Chronic Problem Text: Patient has h/o htn. has been hypotensive this admission. Will continue holding her antihypertensive agents. Continues to require nor epi drip at 1.9 mL/h. She is also using midodrine 10 mg 3 times a day. (5) DM2 (diabetes mellitus, type 2) Status: Chronic Problem Text: Patient currently has SSI with FSBS AC&HS Hypoglycemic protocol in place. (6) Respiratory distress Status: Acute Problem Text: Resolved Plan / VTE VTE Prophylaxis Ordered?: Yes (heparin, aspirin, Plavix) Plan / Urinary Catheter Reason for insertion/continuin: Critical Pt monitoring Subjective Review of Systems CC/HPI The patient is a 81-year-old female admitted with a reason for visit of Respiratory Distress. Events since last encounter Patient reports improvement in her symptoms. She no longer has any chest pain or chest pressure. She does state that she is very fatigued today. She is not noted previous history of anemia, and denies any blood in her stool or black tarry stools. She also denies any bleeding from the vagina. Constitutional: Denies: Chills, Fever Pulmonary: Denies: Cough, Dyspnea, Pleuritic Chest Pain Cardiovascular: Denies: Chest Pain, Palpitations Gastrointestinal: Denies: Nausea, Vomiting Other systems 10 point review systems is otherwise negative Objective Physical Examination General Exam: Positive: Alert, Cooperative, No Acute Distress Eye Exam: Positive: EOMI, Negative: Sclera icteric ENT Exam: Positive: Atraumatic, Negative: Mucous membr. moist/pink Chest Exam: Positive: Clear to auscultation, Diminished, Negative: Rales, Rhonchi, Wheezing Heart Exam: Positive: Murmurs (2/6 holosystolic murmur), Normal S1, Normal S2, Rate Normal, Regular Rhythm Telemetry: Positive: No significant arrhythmia Abdomen Exam: Positive: Normal bowel sounds Extremity Exam: Positive: Edema (2+ pitting edema to knees, with chronic stasis dermatitis bilaterally), Negative: Clubbing, Cyanosis Skin Exam: Positive: Other skin issue (scabbed over stasis ulcers on legs, scabs over left hip) Psych Exam: Positive: Oriented x 3 Vital Signs/I&O Vital Signs Date Time Temp Pulse Resp B/P Pulse Ox O2 Delivery O2 Flow Rate FiO2 10/03/16 09:59 90 18 101/58 99 Nasal Cannula 1.0 10/03/16 08:00 95.5 I&O- Last 24 Hours up to 6 AM 10/03/16 06:00 Intake Total 1447.1 ml Output Total 2515 ml Balance -1067.9 ml Laboratory Data Labs 24H Laboratory Tests 2 10/02/16 11:45: Bedside Glucose (Misc Panel) 159H 10/02/16 16:59: Bedside Glucose (Misc Panel) 150H 10/02/16 21:37: Bedside Glucose (Misc Panel) 149H 10/03/16 05:37: Blood Urea Nitrogen 78H, Creatinine 2.45H, Sodium Level 140, Potassium Level 4.1 , Chloride Level 105, Carbon Dioxide Level 26, Calcium Level 8.0L, Aspartate Amino Transf (AST/SGOT) 104H, Alanine Aminotransferase (ALT/SGPT) 46, Alkaline Phosphatase 80, Total Bilirubin 0.4, Total Protein 6.1L, Albumin 2.3L, Albumin/ Globulin Ratio 0.61L, Anion Gap 9, Glomerular Filtration Rate 20.2L CBC/BMP Laboratory Tests 10/03/16 05:37 Calcium Level 8.0 L, Aspartate Amino Transf (AST/SGOT) 104 H, Alanine Aminotransferase (ALT/SGPT) 46, Alkaline Phosphatase 80, Total Bilirubin 0.4, Total Protein 6.1 L, Albumin 2.3 L, Red Blood Count 2.97 L, Mean Corpuscular Volume 90.5, Mean Corpuscular Hemoglobin 27.8, Mean Corpuscular Hemoglobin Concent 30.7 L, Red Cell Distribution Width 15.6 H FSBS Laboratory Tests Test 10/02/16 11:45 10/02/16 16:59 10/02/16 21:37 Range/Units Bedside Glucose (Misc Panel) 159 150 149 83-110 MG/DL Microbiology Microbiology 10/01/16 Blood Culture - Preliminary, Resulted No Growth after 48 hours. All Specime... 10/01/16 Blood Culture - Preliminary, Resulted No Growth after 48 hours. All Specime... 10/01/16 MRSA Screen - Final, Complete 10/01/16 Urine Culture - Final, Complete JOSE J SARAVIA MD Oct 03, 2016 11:05
[2016-10-03] MEDS: NOREPINEPHRINE BITARTRATE 8 MG in D5W 500 ML IV SCH (12:00)
[2016-10-03] MEDS ORDERED: BISACODYL 5 MG TAB PO PRN (14:00)
--- NOTE | 2016-10-03 15:51 | ECHO ---
DATE OF PROCEDURE: 10/03/2016 REFERRING PHYSICIAN: Dr. Au INDICATION: Cardiogenic shock, NSTEMI acute myocardial infarction. HEIGHT: 122 cm WEIGHT: 112 kg MEASUREMENTS: Ventricular septum: 1.28 cm Posterior wall: 1.24 cm Left ventricle diastole: 5.0 cm Aortic root: 3.1 cm Left atrium: 5.1 cm LVOT: 2.0 cm Inferior vena cava: 1.6 cm DOPPLER MEASUREMENTS: Peak aortic velocity: 376 cm/s Peak aortic valve gradient: 51 mmHg Mean aortic valve gradient: 34 mmHg Aortic valve VTI: 90.9 cm Aortic valve area: 0.65 cm2 Aortic stenosis dimensionless index: 0.17 LVOT velocity;: 59.4 cm/s LVOT VTI: 15.5 cm Critical aortic stenosis. Very mild aortic regurgitation. Mild mitral regurgitation. No mitral stenosis. Mitral E velocity: 111 cm/s Mitral A velocity: 119 cm/s Mitral deceleration time: 183 cm Very mild tricuspid regurgitation. Estimated right ventricle systolic pressure 37 mmHg assuming a right atrial pressure of 5 mmHg. MITRAL ANNULAR TISSUE DOPPLER: E prime septal: 4.1 cm/s E prime lateral: 3.8 cm/s DESCRIPTION: Rhythm was sinus. Image quality was moderately technically difficult. No pericardial effusion. This is a 2D, M-mode, color flow Doppler and pulse wave Doppler examination that included mitral annular tissue Doppler. CONCLUSIONS: 1. Degenerative, calcific aortic valve disease of a severe degree of a three-cuspid aortic valve. Critical aortic valve stenosis (aortic valve area is 0.54 cm2, dimensionless index 0.17, peak aortic valve velocity 376 cm/s, mean aortic valve gradient 34 mmHg). Very mild aortic regurgitation. 2. Mild reduction overall left ventricle (LV) systolic function. Left ventricular ejection fraction (LVEF) 50% by visual estimate. Mild concentric left ventricular hypertrophy. Normal left ventricle internal dimensions. Hypokinesis of left ventricle apex with normal wall motion and wall thickening elsewhere. 3. Grade 1 IV diastolic dysfunction (impaired relaxation filling pattern). 4. Moderate left atrial dilatation. 5. Suggestive of mild elevation of estimated right ventricular systolic pressure. 6. Severe mitral annular calcification. No mitral stenosis. Mild mitral regurgitation.
[2016-10-03] MEDS: ATORVASTATIN 20 MG TAB PO SCH (20:07)
[2016-10-03] MEDS: SENNA 8.6 MG TAB (SENOKOT) PO SCH (20:07)
[2016-10-04] MEDS: HEPARIN SOD (PORCINE) 5000 UNITS/ML VIAL SQ SCH ×3 (05:29→21:54)
[2016-10-04] MEDS: LEVOTHYROXINE 0.05 MG TAB (50 MCG) PO SCH (05:29)
[2016-10-04] MEDS: SODIUM CHLORIDE 0.9% INJ 10 ML SYR IV SCH ×2 (05:30→18:14)
[2016-10-04 06:00] VITALS: BP 114/55
[2016-10-04 06:56] LABS: MEAN CORPUSCULAR HGB CONC 31.2 g/dl (32.0-36.5); MEAN CORPUSCULAR VOLUME 89.5 fl (80.0-96.0); RED CELL DISTRIBUTION WIDTH 15.8 % (11.5-14.5); WHITE BLOOD COUNT 8.2 K/mm3 (4.0-10.0)
[2016-10-04] MEDS ORDERED: FUROSEMIDE 100 MG/10 ML VIAL (J1940) IV ONE (10:00)
--- NOTE | 2016-10-04 10:24 | IPNPDOC ---
Assessment/Plan Date Seen The patient was seen on 10/04/16. Problems Problems: (1) Aortic stenosis Status: Acute Problem Text: Patient is a non-surgical candidate. Discussed results and severity of . Patient opts for Hospice consult and would like to go home under the care of her family. PFS aware. MOLST form filled out, attending physician to review with patient. 10/03/2016 ECHO: 1. Degenerative, calcific aortic valve disease of a severe degree of a three-cuspid aortic valve. Critical aortic valve stenosis (aortic valve area is 0.54 cm2, dimensionless index 0.17, peak aortic valve velocity 376 cm/s, mean aortic valve gradient 34 mmHg). Very mild aortic regurgitation. 2. Mild reduction overall left ventricle (LV) systolic function. Left ventricular ejection fraction (LVEF) 50% by visual estimate. Mild concentric left ventricular hypertrophy. Normal left ventricle internal dimensions. Hypokinesis of left ventricle apex with normal wall motion and wall thickening elsewhere. 3. Grade 1 IV diastolic dysfunction (impaired relaxation filling pattern). 4. Moderate left atrial dilatation. 5. Suggestive of mild elevation of estimated right ventricular systolic pressure. 6. Severe mitral annular calcification. No mitral stenosis. Mild mitral regurgitation. (2) Hypotension Status: Acute Problem Text: Patient has h/o htn, however has been hypotensive requiring norepi drip in ICU. Pressures currently stable on 1.9 mcg. Will continue drip at this time and leave management to cardiology. Midodrine 10 mg 3 times a day was started yesterday. Patient is not dizzy or lightheaded, but is fatigued. I discussed her severe anemia in conjunction with her cardiac disease. Given her recent NSTEMI, I recommended that we give her a blood transfusion. Patient wishes to talk to her family. -Consider PRBC for hemoglobin of 8.3 in patient with known coronary artery disease and current symptoms of anemia -Nor epi drip per cardiology (3) CHF (congestive heart failure) Permanent Comment: ECHO 04/22/2016: Moderate calcific aortic stenosis with mild insufficiency. Severe mitral annular calcification without inflow tract obstruction but mild - moderate insufficiency. Could not rule out a small sessile vegetation but no pedunculated mass was observed. Borderline concentric left ventricle hypertrophy with normal wall motion. Mildly dilated left atrium with Doppler sign of a degree of impaired LV diastolic function and possibly elevated mean left atrial pressure. Normal right heart chamber sizes with Doppler evidence of moderate pulmonary hypertension. Mildly dilated IVC with slightly reduced respiratory collapse suggestive an elevated central venous pressure. Comparing today's study with that of February 10, 2015, there did not appear to be dramatic change. Last Edited By: Mell Banda NP on Apr 22, 2016 10:07 Status: Chronic Problem Text: Acute ischemic heart failure. Recommended transfusion of packed red blood cells to improve cardiac function. Patient did not want to receive any transfusions without discussing with her family first. -Consider PRBC transfusion pending family discussion; despite volume overload, I believe this would improve cardiac function -Continue pressors per cardiology management (4) CKD (chronic kidney disease) Status: Chronic Problem Text: Patient is near her baseline creatinine. (5) HTN (hypertension) Status: Chronic Problem Text: Patient has h/o htn. has been hypotensive this admission. Will continue holding her antihypertensive agents. Continues to require nor epi drip at 1.9 mL/h. She is also using midodrine 10 mg 3 times a day. (6) DM2 (diabetes mellitus, type 2) Status: Chronic Problem Text: Patient currently has SSI with FSBS AC&HS Hypoglycemic protocol in place. (7) Respiratory distress Status: Acute Problem Text: Resolved (8) Anemia Status: Acute Problem Text: hemoglobin 8.3-8.8. Will transfuse 1 unit for palliation with SOB , fatigue. Pre-med with lasix [address] discussed [address] Dr[address] Au. Plan / VTE VTE Prophylaxis Ordered?: Yes (heparin, aspirin, Plavix) Plan / Urinary Catheter Reason for insertion/continuin: Critical Pt monitoring Plan Advance Directives: DNR, Comfort care, Other Advance Directive (MOLST) Disposition Home with hospice. D/W patient's reliability technician who is in agreement. Subjective Review of Systems CC/HPI The patient is a 81-year-old female admitted with a reason for visit of Respiratory Distress. Events since last encounter Progressive RODRIGUEZ, SOB, dizziness with position change and fatigue. Constitutional: Denies: Chills, Fever ENT: Reports: Head Aches Skin: Denies: Rash Pulmonary: Reports: Dyspnea, Denies: Cough Cardiovascular: Reports: Chest Pain, Edema, Lt Headedness, Orthopnea, Palpitations Gastrointestinal: Denies: Abdominal Pain, Constipation, Diarrhea, Nausea, Vomiting Genitourinary: Denies: Dysuria, Frequency Objective Physical Examination General Exam: Positive: Alert, Cooperative, Mild Distress Eye Exam: Positive: EOMI, Negative: Sclera icteric ENT Exam: Positive: Atraumatic, Negative: Mucous membr. moist/pink Chest Exam: Positive: Clear to auscultation, Diminished, Other (dyspnea with conversation), Negative: Rales, Rhonchi, Wheezing Heart Exam: Positive: Murmurs (2/6 holosystolic murmur), Normal S1, Normal S2, Rate Normal, Regular Rhythm Abdomen Exam: Positive: Normal bowel sounds Extremity Exam: Positive: Edema (2+ pitting edema to knees, with chronic stasis dermatitis bilaterally), Negative: Clubbing, Cyanosis Skin Exam: Positive: Other skin issue (scabbed over stasis ulcers on legs, scabs over left hip) Psych Exam: Positive: Oriented x 3 Vital Signs/I&O Vital Signs Date Time Temp Pulse Resp B/P Pulse Ox O2 Delivery O2 Flow Rate FiO2 10/04/16 06:00 97.8 94 18 114/55 96 Nasal Cannula 1.0 I&O- Last 24 Hours up to 6 AM 10/04/16 06:00 Intake Total 1338.5 ml Output Total 3750 ml Balance -2411.5 ml Laboratory Data Labs 24H Laboratory Tests 2 10/03/16 12:13: Bedside Glucose (Misc Panel) 213H 10/03/16 16:45: Bedside Glucose (Misc Panel) 136H 10/03/16 20:44: Bedside Glucose (Misc Panel) 182H 10/04/16 06:25: Bedside Glucose (Misc Panel) 128H CBC/BMP Laboratory Tests 10/04/16 06:20 Red Blood Count 3.16 L, Mean Corpuscular Volume 89.5, Mean Corpuscular Hemoglobin 28.0, Mean Corpuscular Hemoglobin Concent 31.2 L, Red Cell Distribution Width 15.8 H FSBS Laboratory Tests Test 10/03/16 12:13 10/03/16 16:45 10/03/16 20:44 10/04/16 06:25 Range/Units Bedside Glucose (Misc Panel) 213 136 182 128 83-110 MG/DL Microbiology Microbiology 10/01/16 Blood Culture - Preliminary, Resulted No Growth after 72 hours. All specime... 10/01/16 Blood Culture - Preliminary, Resulted No Growth after 72 hours. All specime... 10/01/16 MRSA Screen - Final, Complete 10/01/16 Urine Culture - Final, Complete Mell Banda Oct 04, 2016 10:24 Dante Ross M.D. Oct 04, 2016 13:56
[2016-10-04] MEDS: ALLOPURINOL 100 MG TAB PO SCH ×2 (10:31→21:55)
[2016-10-04] MEDS: MIDODRINE 5 MG TAB PO SCH ×3 (10:31→18:14)
[2016-10-04] MEDS: LACTOBACILLUS ACIDOPHILUS CAP (BACID) PO SCH (10:31)
[2016-10-04] MEDS: CLOPIDOGREL 75 MG TAB PO SCH (10:31)
[2016-10-04] MEDS: ASPIRIN 81 MG ENTERIC TAB PO SCH (10:32)
[2016-10-04] MEDS: HumaLOG INSULIN (NovoLOG) PER UNIT SC SCH ×4 (10:32→20:30)
[2016-10-04] MEDS: FUROSEMIDE 100 MG/10 ML VIAL (J1940) IV SCH (10:32)
[2016-10-04] MEDS: MULTIVITAMINS/MINERALS THERAP 1 TAB PO SCH (10:32)
[2016-10-04] MEDS: NYSTATIN 100,000 UNITS/GM TOPICAL PWD 15 GM TOP SCH ×2 (10:33→21:56)
[2016-10-04 14:00] VITALS: BP 120/64
[2016-10-04] MEDS: SENNA 8.6 MG TAB (SENOKOT) PO SCH (21:55)
[2016-10-04] MEDS: ACETAMINOPHEN TAB 650MG DOSE (2X325MG) PO PRN (21:55)
[2016-10-04] MEDS: FUROSEMIDE 80 MG TAB PO SCH (21:55)
[2016-10-04 22:00] VITALS: BP 114/61
[2016-10-05] MEDS: LEVOTHYROXINE 0.05 MG TAB (50 MCG) PO SCH (05:42)
[2016-10-05] MEDS: HEPARIN SOD (PORCINE) 5000 UNITS/ML VIAL SQ SCH ×3 (05:42→21:49)
[2016-10-05] MEDS: SODIUM CHLORIDE 0.9% INJ 10 ML SYR IV SCH ×2 (05:43→17:43)
[2016-10-05 05:56] LABS: MEAN CORPUSCULAR HGB CONC 32.2 g/dl (32.0-36.5); RED CELL DISTRIBUTION WIDTH 17.4 % (11.5-14.5); WHITE BLOOD COUNT 9.3 K/mm3 (4.0-10.0)
[2016-10-05 06:00] VITALS: BP 119/59
[2016-10-05 06:13] LABS: ALBUMIN 2.5 GM/DL (3.2-5.2); ALBUMIN/GLOBULIN RATIO 0.58 (1.00-1.93); BILIRUBIN,TOTAL 0.6 MG/DL (0.2-1.0); CALCIUM LEVEL 8.6 MG/DL (8.8-10.2); CREATININE FOR GFR 2.45 MG/DL (0.55-1.02); GLOMERULAR FILTRATION RATE 20.2 (>32); POTASSIUM SERUM 3.6 MEQ/L (3.5-5.1); TOTAL PROTEIN 6.8 GM/DL (6.4-8.2)
[2016-10-05] MEDS: HumaLOG INSULIN (NovoLOG) PER UNIT SC SCH ×4 (09:56→21:42)
[2016-10-05] MEDS: ALLOPURINOL 100 MG TAB PO SCH ×2 (09:57→21:48)
[2016-10-05] MEDS: CLOPIDOGREL 75 MG TAB PO SCH (09:57)
[2016-10-05] MEDS: ASPIRIN 81 MG ENTERIC TAB PO SCH (09:57)
[2016-10-05] MEDS: NYSTATIN 100,000 UNITS/GM TOPICAL PWD 15 GM TOP SCH ×2 (09:57→21:49)
[2016-10-05] MEDS: MIDODRINE 5 MG TAB PO SCH ×3 (09:57→15:42)
[2016-10-05] MEDS: FUROSEMIDE 80 MG TAB PO SCH ×2 (09:57→21:48)
[2016-10-05 11:00] VITALS: BP 117/61
--- NOTE | 2016-10-05 11:47 | IPNPDOC ---
Assessment/Plan Date Seen The patient was seen on 10/05/16. Problems Problems: (1) Aortic stenosis Status: Acute Problem Text: 10/05 - pt would like to go home tomorrow 10/06 - transportation arranged for 11 AM. Hospice to perform intake on 10/09. Patient is a non-surgical candidate. Discussed results and severity of . Patient opts for Hospice consult and would like to go home under the care of her family. PFS aware. MOLST form filled out, attending physician to review with patient. 10/03/2016 ECHO: 1. Degenerative, calcific aortic valve disease of a severe degree of a three-cuspid aortic valve. Critical aortic valve stenosis (aortic valve area is 0.54 cm2, dimensionless index 0.17, peak aortic valve velocity 376 cm/s, mean aortic valve gradient 34 mmHg). Very mild aortic regurgitation. 2. Mild reduction overall left ventricle (LV) systolic function. Left ventricular ejection fraction (LVEF) 50% by visual estimate. Mild concentric left ventricular hypertrophy. Normal left ventricle internal dimensions. Hypokinesis of left ventricle apex with normal wall motion and wall thickening elsewhere. 3. Grade 1 IV diastolic dysfunction (impaired relaxation filling pattern). 4. Moderate left atrial dilatation. 5. Suggestive of mild elevation of estimated right ventricular systolic pressure. 6. Severe mitral annular calcification. No mitral stenosis. Mild mitral regurgitation. (2) Hypotension Status: Acute Problem Text: Patient has h/o htn, however has been hypotensive requiring norepi drip in ICU. Pressures currently stable on 1.9 mcg. Will continue drip at this time and leave management to cardiology. Midodrine 10 mg 3 times a day was started yesterday. Patient is not dizzy or lightheaded, but is fatigued. I discussed her severe anemia in conjunction with her cardiac disease. Given her recent NSTEMI, I recommended that we give her a blood transfusion. Patient wishes to talk to her family. -Consider PRBC for hemoglobin of 8.3 in patient with known coronary artery disease and current symptoms of anemia -Nor epi drip per cardiology 09/08- rec 1 units pRBCs, Hgb improved to 10.3 today. (3) CHF (congestive heart failure) Permanent Comment: ECHO 04/22/2016: Moderate calcific aortic stenosis with mild insufficiency. Severe mitral annular calcification without inflow tract obstruction but mild - moderate insufficiency. Could not rule out a small sessile vegetation but no pedunculated mass was observed. Borderline concentric left ventricle hypertrophy with normal wall motion. Mildly dilated left atrium with Doppler sign of a degree of impaired LV diastolic function and possibly elevated mean left atrial pressure. Normal right heart chamber sizes with Doppler evidence of moderate pulmonary hypertension. Mildly dilated IVC with slightly reduced respiratory collapse suggestive an elevated central venous pressure. Comparing today's study with that of February 10, 2015, there did not appear to be dramatic change. Last Edited By: Mell Banda NP on Apr 22, 2016 10:07 Status: Chronic Problem Text: Acute ischemic heart failure. Recommended transfusion of packed red blood cells to improve cardiac function. Patient did not want to receive any transfusions without discussing with her family first. -Consider PRBC transfusion pending family discussion; despite volume overload, I believe this would improve cardiac function -Continue pressors per cardiology management 10/05 appears stable (4) CKD (chronic kidney disease) Status: Chronic Problem Text: Patient is near her baseline creatinine. (5) HTN (hypertension) Status: Chronic Problem Text: Patient has h/o htn. has been hypotensive this admission. Will continue holding her antihypertensive agents. Continues to require nor epi drip at 1.9 mL/h. She is also using midodrine 10 mg 3 times a day. (6) DM2 (diabetes mellitus, type 2) Status: Chronic Problem Text: Patient currently has SSI with FSBS AC&HS Hypoglycemic protocol in place. (7) Respiratory distress Status: Resolved Problem Text: Resolved (8) Anemia Status: Acute Response to Treatment: Stable Problem Text: hemoglobin 8.3-8.8. Will transfuse 1 unit for palliation with SOB , fatigue. Pre-med with lasix 60 [address] IV[address] discussed with Dr. Au. 10/05 - Hgb 10.3 today. Plan / VTE VTE Prophylaxis Ordered?: Yes (heparin, aspirin, Plavix) Plan / Urinary Catheter Reason for insertion/continuin: Critical Pt monitoring Plan Advance Directives: DNR, Comfort care, Other Advance Directive (MOLST) Plan Text Attending attestation: I saw and evaluated the patient, and agree with plan of care as discussed and documented above. Prescription for home hospice supplies faxed to [facility]. Jose J Gonsalez MD Subjective Review of Systems CC/HPI Pt without new concerns this morning. She is feeling well, family is at bedside. General: Denies: Fatigue Constitutional: Denies: Chills, Fever ENT: Denies: Head Aches Pulmonary: Denies: Cough, Dyspnea Cardiovascular: Denies: Chest Pain, Palpitations Gastrointestinal: Denies: Diarrhea, Nausea, Vomiting Psych: Reports: Mood Normal Objective Physical Examination General Exam: Positive: Alert, Cooperative, No Acute Distress Eye Exam: Negative: Sclera icteric ENT Exam: Positive: Atraumatic, Negative: Mucous membr. moist/pink Chest Exam: Positive: Clear to auscultation, Diminished, Other (dyspnea with conversation), Negative: Rales, Rhonchi, Wheezing Heart Exam: Positive: Murmurs (2/6 holosystolic murmur), Normal S1, Normal S2, Rate Normal, Regular Rhythm Abdomen Exam: Positive: Normal bowel sounds Extremity Exam: Positive: Edema (1+ pitting edema to knees, with chronic stasis dermatitis bilaterally), Negative: Clubbing, Cyanosis Skin Exam: Positive: Other skin issue (scabbed over stasis ulcers on legs, scabs over left hip) Psych Exam: Positive: Oriented x 3 Vital Signs/I&O Vital Signs Date Time Temp Pulse Resp B/P Pulse Ox O2 Delivery O2 Flow Rate FiO2 10/05/16 06:00 97.3 91 20 119/59 95 Nasal Cannula 1.0 I&O- Last 24 Hours up to 6 AM 10/05/16 06:00 Intake Total 1728 ml Output Total 2850 ml Balance -1122 ml Laboratory Data Labs 24H Laboratory Tests 2 10/04/16 11:49: Bedside Glucose (Misc Panel) 226H 10/04/16 17:26: Bedside Glucose (Misc Panel) 221H 10/04/16 20:20: Bedside Glucose (Misc Panel) 198H 10/05/16 05:36: Blood Urea Nitrogen 80H, Creatinine 2.45H, Sodium Level 141, Potassium Level 3.6 , Chloride Level 103, Carbon Dioxide Level 28, Calcium Level 8.6L, Aspartate Amino Transf (AST/SGOT) 42H, Alanine Aminotransferase (ALT/SGPT) 34, Alkaline Phosphatase 94, Total Bilirubin 0.6, Total Protein 6.8, Albumin 2.5L, Albumin/ Globulin Ratio 0.58L, Anion Gap 10, Glomerular Filtration Rate 20.2L CBC/BMP Laboratory Tests 10/05/16 05:36 Calcium Level 8.6 L, Aspartate Amino Transf (AST/SGOT) 42 H, Alanine Aminotransferase (ALT/SGPT) 34, Alkaline Phosphatase 94, Total Bilirubin 0.6, Total Protein 6.8, Albumin 2.5 L, Red Blood Count 3.66 L, Mean Corpuscular Volume 87.0, Mean Corpuscular Hemoglobin 28.0, Mean Corpuscular Hemoglobin Concent 32.2, Red Cell Distribution Width 17.4 H FSBS Laboratory Tests Test 10/04/16 11:49 10/04/16 17:26 10/04/16 20:20 Range/Units Bedside Glucose (Misc Panel) 226 221 198 83-110 MG/DL Microbiology Microbiology 10/01/16 Blood Culture - Preliminary, Resulted No Growth after 72 hours. All specime... 10/01/16 Blood Culture - Preliminary, Resulted No Growth after 72 hours. All specime... 10/01/16 MRSA Screen - Final, Complete 10/01/16 Urine Culture - Final, Complete MINNIE BELL PA-C Oct 05, 2016 11:47 JOSE J GONSALEZ MD Oct 05, 2016 16:54
[2016-10-05 14:00] VITALS: BP 116/65
[2016-10-05] MEDS: ACETAMINOPHEN TAB 650MG DOSE (2X325MG) PO PRN ×2 (17:42→21:48)
[2016-10-05] MEDS: SENNA 8.6 MG TAB (SENOKOT) PO SCH (21:48)
[2016-10-05 22:00] VITALS: BP 112/62
[2016-10-06] MEDS: LEVOTHYROXINE 0.05 MG TAB (50 MCG) PO SCH (05:50)
[2016-10-06] MEDS: SODIUM CHLORIDE 0.9% INJ 10 ML SYR IV SCH ×2 (05:50→18:00)
[2016-10-06] MEDS: HEPARIN SOD (PORCINE) 5000 UNITS/ML VIAL SQ SCH ×3 (05:50→21:55)
[2016-10-06] MEDS: MORPHINE 10MG/0.5ML ORAL CONCENTRATE SOLUTION U/D SL PRN ×2 (05:51→12:30)
[2016-10-06 06:00] VITALS: BP_SYST 110; BP_SYST 111; BP_DIAS 55; BP_DIAS 56
[2016-10-06] MEDS: HumaLOG INSULIN (NovoLOG) PER UNIT SC SCH ×4 (09:40→22:01)
[2016-10-06] MEDS: MIDODRINE 5 MG TAB PO SCH ×3 (09:41→16:49)
[2016-10-06] MEDS: ASPIRIN 81 MG ENTERIC TAB PO SCH (09:42)
[2016-10-06] MEDS: CLOPIDOGREL 75 MG TAB PO SCH (09:42)
[2016-10-06] MEDS: FUROSEMIDE 80 MG TAB PO SCH ×2 (09:42→21:55)
[2016-10-06] MEDS: ALLOPURINOL 100 MG TAB PO SCH ×2 (09:42→21:55)
[2016-10-06] MEDS: NYSTATIN 100,000 UNITS/GM TOPICAL PWD 15 GM TOP SCH ×2 (09:43→21:00)
[2016-10-06] MEDS ORDERED: MIDO5TA PO (11:08)
[2016-10-06] MEDS ORDERED: FURO1TAB15 PO (11:08)
--- NOTE | 2016-10-06 12:01 | DSES ---
DATE OF ADMISSION: 10/01/2016 DATE OF DISCHARGE: 10/06/2016 PRIMARY CARE PHYSICIAN: Dr. Serjio Ivan ATTENDING PHYSICIAN: Dr. Reji Gonsalez HISTORY OF PRESENT ILLNESS: Shyanne Adams is an 81-year-old female patient of Dr. Serjio Ivan who presented to the emergency department with shortness of breath. Patient was admitted with respiratory distress secondary to congestive heart failure and pulmonary hypertension. Patient also admitted with a non-ST elevation myocardial infarction. Dr. Au from cardiology was consulted. Patient was felt to be a nonsurgical candidate. 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 Severe mitral annular calcification. Mild mitral regurgitation. Patient was hypotensive and initially required pressors in intensive care unit (ICU). Cardiology managed. Pressures were eventually discontinued and the patient was placed on midodrine 10 mg three times a day. She did receive 1 unit of packed red blood cells for anemia. She was placed on Lasix 80 mg twice a day for her heart failure. Patient has severe aortic stenosis. She has opted for hospice and a hospice consult has been arranged as an outpatient on 10/09/2016. Patient would like to go home today on 10/06/2016 and transportation has been arranged. Durable medical equipment including hospital bed, bed tray, pressure pad, pump have all been requested and they would like this set up in her home prior to her being discharged. [facility] setting this up today. Patient will be discharged home today with plans for hospice to see the patient on 10/09/2016. PHYSICAL EXAMINATION: Vital signs: Temperature 98.1, pulse 85, respiratory 18, blood pressure is 110/55, pulse oximetry 94%. General: Patient is alert, no acute distress. Chest: Clear to auscultation but diminished. Heart: Regular rate and rhythm. 2/6 all systolic murmur. Abdomen: Positive bowel sounds, soft, nontender. Extremity: 1+ bilateral lower extremity edema. Stasis dermatitis changes in the bilateral lower extremities. MEDICATIONS: - furosemide 80 mg by mouth twice a day - midodrine 10 mg three times a day - acetaminophen 650 mg by mouth every 4 hours pain or fever - allopurinol 100 mg by mouth twice a day - aspirin 81 mg by mouth daily - atorvastatin 20 mg by mouth nightly - Sensipar 30 mg by mouth as directed - Plavix 75 mg by mouth daily - Dexilant 30 mg by mouth daily - dorzolamide drops one drop both eyes twice a day - glipizide 10 mg by mouth twice a day - hydroxyzine 25 mg by mouth three times a day - Bacid one tablet twice a day - Synthroid 50 mcg by mouth daily - meclizine 25 mg by mouth daily as needed, dizziness - multivitamin by mouth daily - nystatin powder topically twice a day to affected area - Travatan Z one drop both eyes nightly DISCHARGE INSTRUCTIONS: Patient will be discharged home with plans for hospice to come to the patient's home on 10/09/2016 to start hospice. DME prescriptions including hospital bed, hospital bed tray, pressure pad were written. The patient can followup with primary care physician, Dr. Ivan, per his instruction wherein a week's time. Diet consistent carbohydrate. Activity as tolerated. DISCHARGE DIAGNOSES: 1. Aortic stenosis. 2. Hypotension. 3. Congestive heart failure. 4. Chronic kidney disease. 5. Hypertension. 6. Diabetes mellitus, type 2. 7. Respiratory distress. 8. Anemia. ADDENDUM: DATE OF ADMISSION: 10/01/2016 DATE OF DISCHARGE: 10/07/2016 Plan was for patient to be discharged yesterday, 10/06/2016. Discharge was completed; however, nursing was unable to accommodate transportation and, therefore, patient remained in the hospital overnight. Nursing is working on transportation for today for patient to be transported home. Addendum Dictated: JESSICA 10/07/2016 0832 Addendum Transcribed: lucia 10/07/2016 0847 JEAN CARLOS
[2016-10-06] MEDS: SENNA 8.6 MG TAB (SENOKOT) PO SCH (21:55)
[2016-10-06 22:00] VITALS: BP 111/56
[2016-10-07] MEDS: ACETAMINOPHEN TAB 650MG DOSE (2X325MG) PO PRN (01:54)
[2016-10-07] MEDS: SODIUM CHLORIDE 0.9% INJ 10 ML SYR IV SCH (05:44)
[2016-10-07] MEDS: LEVOTHYROXINE 0.05 MG TAB (50 MCG) PO SCH (05:44)
[2016-10-07] MEDS: HEPARIN SOD (PORCINE) 5000 UNITS/ML VIAL SQ SCH (05:44)
[2016-10-07 06:00] VITALS: BP 105/58
[2016-10-07 06:42] LABS: MEAN CORPUSCULAR HEMOGLOBIN 27.8 pg (27.0-33.0); MEAN CORPUSCULAR HGB CONC 31.2 g/dl (32.0-36.5); MEAN CORPUSCULAR VOLUME 88.8 fl (80.0-96.0); WHITE BLOOD COUNT 7.6 K/mm3 (4.0-10.0)
[2016-10-07 06:54] LABS: ALBUMIN 2.6 GM/DL (3.2-5.2); ALBUMIN/GLOBULIN RATIO 0.54 (1.00-1.93); BILIRUBIN,TOTAL 0.8 MG/DL (0.2-1.0); CALCIUM LEVEL 8.7 MG/DL (8.8-10.2); CREATININE FOR GFR 2.66 MG/DL (0.55-1.02); GLOMERULAR FILTRATION RATE 18.4 (>32); POTASSIUM SERUM 3.6 MEQ/L (3.5-5.1); TOTAL PROTEIN 7.4 GM/DL (6.4-8.2)
[2016-10-07] MEDS: FUROSEMIDE 80 MG TAB PO SCH (08:34)
[2016-10-07] MEDS: MIDODRINE 5 MG TAB PO SCH ×2 (08:34→12:39)
[2016-10-07] MEDS: CLOPIDOGREL 75 MG TAB PO SCH (08:34)
[2016-10-07] MEDS: ASPIRIN 81 MG ENTERIC TAB PO SCH (08:35)
[2016-10-07] MEDS: HumaLOG INSULIN (NovoLOG) PER UNIT SC SCH ×2 (08:35→12:40)
[2016-10-07] MEDS: ALLOPURINOL 100 MG TAB PO SCH (08:36)
[2016-10-07] MEDS: NYSTATIN 100,000 UNITS/GM TOPICAL PWD 15 GM TOP SCH (08:37)
== END 2016-10-07 13:10 | disposition home or self-care (01) | DRG 280 ==
LOC: M ED 22:17 → M ICU 10-01 04:53 → M ED INP 10-01 04:54 → M ICU 10-01 06:47 → M MSPAV 10-03 17:17
PROVIDERS: ADMIT Internal Medicine; ATTEND Family Medicine
PROC: 30233N1 Transfusion of Nonautologous Red Blood Cells into Peripheral Vein, Percutaneous Approach (ICD-10-PCS; principal; 2016-10-04)
DX: I21.4 Non-ST elevation (NSTEMI) myocardial infarction (principal); I50.33 Acute on chronic diastolic (congestive) heart failure; R57.0 Cardiogenic shock; N17.9 Acute kidney failure, unspecified; N18.4 Chronic kidney disease, stage 4 (severe); Z66 Do not resuscitate; I12.9 Hypertensive chronic kidney disease with stage 1 through stage 4 chronic kidney disease, or unspecified chronic kidney disease; E78.5 Hyperlipidemia, unspecified; I95.9 Hypotension, unspecified; I25.10 Atherosclerotic heart disease of native coronary artery without angina pectoris; E11.9 Type 2 diabetes mellitus without complications; M10.9 Gout, unspecified; I35.0 Nonrheumatic aortic (valve) stenosis; I34.0 Nonrheumatic mitral (valve) insufficiency; E03.9 Hypothyroidism, unspecified; H40.9 Unspecified glaucoma; D64.9 Anemia, unspecified; R06.00 Dyspnea, unspecified; Z79.82 Long term (current) use of aspirin; Z79.899 Other long term (current) drug therapy; Z90.49 Acquired absence of other specified parts of digestive tract; Z88.6 Allergy status to analgesic agent; I25.2 Old myocardial infarction; Z87.891 Personal history of nicotine dependence

== ENCOUNTER → 2017-01-30 | Outpatient (REF) | payer MEDICARE, MEDICAID ==
[~2017-01-30] MED LIST changes: +ASPI1TAB PO; +CIPR250T3 PO; +DEXI30CA PO; +FURO1TAB15 PO; +FURO40TA2 PO; +HYDR25T PO; +MIDO5TA PO; +PLAV75TA38 PO; +SYNT50TA PO
[2017-01-30 18:29] LABS: YEAST LIKE CELL URINE AUTO SMALL
== END ==
LOC: M LAB REF 15:48
PROVIDERS: ATTEND Family Medicine
DX: R82.90 Unspecified abnormal findings in urine (principal)